=== PATIENT | female | born 1970 | race Caucasian/White ===

== ENCOUNTER 2017-09-29 13:14 | Emergency (ER) | payer BC ==
[2017-09-29] MEDS ORDERED: Sodium Chloride 0.9% 10 ML Syringe FLUSH PRN (13:35)
[2017-09-29] MEDS ORDERED: Aspirin 81 MG Tab.Chew PO ONE (13:35)
[2017-09-29] MEDS ORDERED: HYDROmorphone 0.5 MG/0.5 ML Syringe IVPUSH ONE (13:38)
[2017-09-29] MEDS ORDERED: Sodium Chloride 0.9% 1,000 ML IV SCH (13:45)
--- NOTE | 2017-09-29 16:16 | EDM.PDOC ---
ED HPI GENERAL MEDICAL PROBLEM - General Chief Complaint: Chest Pain Stated Complaint: SOB/CHEST PAIN Time Seen by Provider: 09/29/17 13:27 Source of Information: Reports: Patient History Limitations: Reports: No Limitations - History of Present Illness INITIAL COMMENTS - FREE TEXT/NARRATIVE: The patient presents with chest pain and shortness of breath. This started a few days ago. She also has some nausea. Her biggest concern was she has muscle cramps all over her body. She denies fever, chills, or cough. She has no nausea or vomiting. She was seen at the walk in clinic and given a muscle relaxer that has not been helping. She has a history of diabetes, HTN and high cholesterol. She does smoke. Onset: Gradual Duration: Day(s): (3) Location: Reports: Chest Quality: Reports: Sharp Severity: Moderate Improves with: Reports: None Worsens with: Reports: None Associated Symptoms: Reports: Chest Pain, Shortness of Breath. 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: Reports: Endocrine/Metabolic History: Reports: Diabetes, Type II - Past Surgical History HEENT Surgical History: Reports: Naso-Sinus Surgery GI Surgical History: Reports: Cholecystectomy Female Surgical History: Reports: Section, Oophorectomy Dermatological Surgical History: Reports: Skin Graft Social & Family History - Tobacco Use Smoking Status *Q: Current Every Day Smoker Years of Tobacco use: 28 Packs/Tins Daily: 1 - Caffeine Use Caffeine Use: Reports: Coffee, Soda - Recreational Drug Use Recreational Drug Use: No ED ROS GENERAL - Review of Systems Review Of Systems: See Below Constitutional: Reports: No Symptoms HEENT: Reports: No Symptoms Respiratory: Reports: Shortness of Breath Cardiovascular: Reports: Chest Pain Endocrine: Reports: No Symptoms GI/Abdominal: Reports: No Symptoms ED EXAM, GENERAL - Physical Exam Exam: See Below Exam Limited By: No Limitations General Appearance: Alert, No Apparent Distress Ears: Normal External Exam Nose: Normal Inspection Throat/Mouth: Normal Inspection Head: Atraumatic, Normocephalic Neck: Normal Inspection Respiratory/Chest: No Respiratory Distress, Lungs Clear, Normal Breath Sounds Cardiovascular: Regular Rate, Rhythm, No Edema, No Murmur GI/Abdominal: Soft, Non-Tender, No Organomegaly, No Mass Back Exam: Normal Inspection Extremities: Normal Inspection Neurological: Alert, Oriented, No Motor/Sensory Deficits EKG INTERPRETATION EKG Date: 09/29/17 Time: 13:27 Rhythm: Other (sinus tachycardia) Rate (Beats/Min): 112 [place]: Normal P-Wave: Present QRS: Normal ST-T: Normal QT: Normal Course - Vital Signs Last Recorded V/S: Last Vital Signs Temp 98.4 F 09/29/17 13:36 Pulse 105 H 09/29/17 13:36 Resp 12 09/29/17 13:36 BP 104/76 09/29/17 13:36 Pulse Ox 98 09/29/17 13:36 - Orders/Labs/Meds Orders: Active Orders 24 hr Category Date Time Status Cardiac Monitoring [RC] . DIRECTED Care 09/29/17 13:35 Active EKG Documentation Completion [RC] STAT Care 09/29/17 13:37 Active Peripheral IV Care [RC] . DIRECTED Care 09/29/17 13:37 Active Chest 1V Frontal [CR] Stat Exams 09/29/17 13:37 Taken Sodium Chloride 0.9% [Normal Saline] 1,000 ml Med 09/29/17 13:45 Active IV ASDIRECTED Sodium Chloride 0.9% [Saline Flush] Med 09/29/17 13:35 Active 10 ml FLUSH ASDIRECTED PRN Peripheral IV Insertion Adult [OM.PC] Stat Oth 09/29/17 13:35 Ordered Medication Orders Sodium Chloride (Normal Saline) 1,000 mls @ 125 mls/hr IV ASDIRECTED AYSE Last Admin: 09/29/17 13:50 Dose: 125 mls/hr Sodium Chloride (Saline Flush) 10 ml FLUSH ASDIRECTED PRN PRN Reason: Keep Vein Open Last Admin: 09/29/17 13:49 Dose: 10 ml Labs: Laboratory Tests 09/29/17 09/29/17 09/29/17 Range/Units 13:35 13:35 13:35 WBC 9.24 (3.98-10.04) K/mm3 RBC 4.91 (3.98-5.22) M/mm3 Hgb 14.7 (11.2-15.7) gm/L Hct 43.7 (34.1-44.9) % MCV 89.0 (79.4-94.8) fl MCH 29.9 (25.6-32.2) pg MCHC 33.6 (32.2-35.5) g/dl RDW Std Deviation 50.4 H (36.4-46.3) fL Plt Count 72 L (182-369) K/mm3 MPV TNP Neut % (Auto) 64.8 (34.0-71.1) % Lymph % (Auto) 27.5 (19.3-51.7) % [place] % (Auto) 6.3 (4.7-12.5) % Eos % (Auto) 1.1 (0.7-5.8) Baso % (Auto) 0.2 (0.1-1.2) % Neut # (Auto) 5.99 (1.56-6.13) K/mm3 Lymph # (Auto) 2.54 (1.18-3.74) K/mm3 [place] # (Auto) 0.58 H (0.24-0.36) K/mm3 Eos # (Auto) 0.10 (0.04-0.36) K/mm3 Baso # (Auto) 0.02 (0.01-0.08) K/mm3 Manual Slide Review Abnormal smear D-Dimer, Quantitative 0.46 (0.19-0.59) mg/L Sodium 138 (136-145) mEq/L Potassium 3.8 (3.5-5.1) mEq/L Chloride 102 (98-107) mEq/L Carbon Dioxide 25 (21-32) mEq/L Anion Gap 14.8 (5-15) BUN 27 H (7-18) mg/dL Creatinine 1.5 H (0.55-1.02) mg/dL Est Cr Clr Drug Dosing 37.06 mL/min Estimated GFR (MDRD) 37 (>60) mL/min BUN/Creatinine Ratio 18.0 (14-18) Glucose 130 H (74-106) mg/dL Calcium 8.7 (8.5-10.1) mg/dL Magnesium 1.7 L (1.8-2.4) mg/dl Total Bilirubin 0.5 (0.2-1.0) mg/dL AST 28 (15-37) U/L ALT 46 (14-59) U/L Alkaline Phosphatase 73 (46-116) U/L Troponin I < 0.017 (0.00-0.056) ng/mL Total Protein 7.6 (6.4-8.2) g/dl Albumin 3.4 (3.4-5.0) g/dl Globulin 4.2 gm/dL Albumin/Globulin Ratio 0.8 L (1-2) HCG, Qual (NEGATIVE) 09/29/17 Range/Units 13:35 WBC (3.98-10.04) K/mm3 RBC (3.98-5.22) M/mm3 Hgb (11.2-15.7) gm/L Hct (34.1-44.9) % MCV (79.4-94.8) fl MCH (25.6-32.2) pg MCHC (32.2-35.5) g/dl RDW Std Deviation (36.4-46.3) fL Plt Count (182-369) K/mm3 MPV Neut % (Auto) (34.0-71.1) % Lymph % (Auto) (19.3-51.7) % [place] % (Auto) (4.7-12.5) % Eos % (Auto) (0.7-5.8) Baso % (Auto) (0.1-1.2) % Neut # (Auto) (1.56-6.13) K/mm3 Lymph # (Auto) (1.18-3.74) K/mm3 [place] # (Auto) (0.24-0.36) K/mm3 Eos # (Auto) (0.04-0.36) K/mm3 Baso # (Auto) (0.01-0.08) K/mm3 Manual Slide Review D-Dimer, Quantitative (0.19-0.59) mg/L Sodium (136-145) mEq/L Potassium (3.5-5.1) mEq/L Chloride (98-107) mEq/L Carbon Dioxide (21-32) mEq/L Anion Gap (5-15) BUN (7-18) mg/dL Creatinine (0.55-1.02) mg/dL Est Cr Clr Drug Dosing mL/min Estimated GFR (MDRD) (>60) mL/min BUN/Creatinine Ratio (14-18) Glucose (74-106) mg/dL Calcium (8.5-10.1) mg/dL Magnesium (1.8-2.4) mg/dl Total Bilirubin (0.2-1.0) mg/dL AST (15-37) U/L ALT (14-59) U/L Alkaline Phosphatase (46-116) U/L Troponin I (0.00-0.056) ng/mL Total Protein (6.4-8.2) g/dl Albumin (3.4-5.0) g/dl Globulin gm/dL Albumin/Globulin Ratio (1-2) HCG, Qual Negative (NEGATIVE) Meds: Medications Generic Name Dose Route Start Last Admin Trade Name Freq PRN Reason Stop Dose Admin Sodium Chloride 1,000 mls @ 125 mls/hr 09/29/17 13:45 09/29/17 13:50 Normal Saline IV 125 mls/hr ASDIRECTED AYSE Administration Sodium Chloride 10 ml 09/29/17 13:35 09/29/17 13:49 Saline Flush FLUSH 10 ml ASDIRECTED PRN Administration Keep Vein Open Discontinued Medications Generic Name Dose Route Start Last Admin Trade Name Johnq PRN Reason Stop Dose Admin Aspirin 324 mg 09/29/17 13:35 09/29/17 13:47 Aspirin PO 09/29/17 13:36 324 mg ONETIME ONE Administration Hydromorphone HCl 0.5 mg 09/29/17 13:38 09/29/17 13:48 Dilaudid IVPUSH 09/29/17 13:39 0.5 mg ONETIME ONE Administration - Re-Assessments/Exams Free Text/Narrative Re-Assessment/Exam: 09/29/17 16:19 I ordered an IV NS, labs, EKG, CXR and dilaudid for pain. Her EKG shows sinus tachycardia with no acute changes. Her CXR looks good. Her WBC and Hgb were normal. Her platelets were low at 72. Her D-dimer was negative. Her creatinine was elevated at 1.5 with a low GFR of 37.06. Her glucose was 130. Her troponin was negative and her HCG was negative. She feels better. I will discharge her with something for pain and off work for a couple days. I will have her follow up with Dr Nascimento for the renal insuficency and thrombocytopnia. Departure - Departure Time of Disposition: 16:25 Disposition: Home, Self-Care 01 Condition: Good Clinical Impression: Atypical chest pain, Renal insufficiency, Thrombocytopenia Prescriptions: Hydrocodone/Acetaminophen [Hydrocodon-Acetaminophen 5-325] 1 - 2 each PO Q6HR PRN #20 tablet PRN Reason: Pain Referrals: PCP,None [Primary Care Provider] - Thais Nascimento MD [Physician] - 1 Week Additional Instructions: Take your medication as prescribed. Rest for a couple days. Follow up with Dr Nascimento. Drink plenty of fluids. Please return if you are worse. - My Orders Last 24 Hours: My Active Orders 09/29/17 13:35 Cardiac Monitoring [RC] . DIRECTED Sodium Chloride 0.9% [Saline Flush] 10 ml FLUSH ASDIRECTED PRN Peripheral IV Insertion Adult [OM.PC] Stat 09/29/17 13:37 EKG Documentation Completion [RC] STAT Peripheral IV Care [RC] . DIRECTED Chest 1V Frontal [CR] Stat 09/29/17 13:45 Sodium Chloride 0.9% [Normal Saline] 1,000 ml IV ASDIRECTED - Assessment/Plan Last 24 Hours: My Active Orders 09/29/17 13:35 Cardiac Monitoring [RC] . DIRECTED Sodium Chloride 0.9% [Saline Flush] 10 ml FLUSH ASDIRECTED PRN Peripheral IV Insertion Adult [OM.PC] Stat 09/29/17 13:37 EKG Documentation Completion [RC] STAT Peripheral IV Care [RC] . DIRECTED Chest 1V Frontal [CR] Stat 09/29/17 13:45 Sodium Chloride 0.9% [Normal Saline] 1,000 ml IV ASDIRECTED
--- NOTE | 2017-10-04 10:17 | CR ---
Chest: Portable view of the chest was obtained. Comparison: No prior chest x-ray. Heart size and mediastinum are normal. Lungs are clear. Bony structures are grossly intact. Impression: 1. Nothing acute is identified on portable chest x-ray. Diagnostic code #1
== END 2017-09-29 16:46 | disposition home or self-care (01) ==
LOC: JD.ED 13:14
DX: R07.89 Other chest pain (principal); N28.9 Disorder of kidney and ureter, unspecified; D69.6 Thrombocytopenia, unspecified; E11.9 Type 2 diabetes mellitus without complications; I10 Essential (primary) hypertension; F17.210 Nicotine dependence, cigarettes, uncomplicated
CPT/HCPCS: 36415; 71010; 80053; 83735; 84484; 84703; 85025; 85379; 93005; 96361; 96374; 99285; A9270; J1170; J7040; J7050; 93010; 99284

== ENCOUNTER 2019-02-06 22:05 | Emergency (ER) | payer BC, OTHER ==
[2019-02-06] MEDS ORDERED: Albuterol/Ipratropium 3.0-0.5 MG/3 ML Neb Soln NEB ONE (22:29)
--- NOTE | 2019-02-07 00:17 | EDM.PDOC ---
ED HPI GENERAL MEDICAL PROBLEM - General Chief Complaint: Respiratory Problem Stated Complaint: COUGH VOMITING Time Seen by Provider: 02/06/19 22:16 Source of Information: Reports: Patient, Family History Limitations: Reports: No Limitations - History of Present Illness INITIAL COMMENTS - FREE TEXT/NARRATIVE: The patient presents with a fever, chills, cough, congestion and runny nose. This all started on Wednesday. She says she coughs so much that she vomits. She has a history of asthma. 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 She has no abdominal pain, nausea or vomiting. Her ears do not hurt. Her throat is not sore. Onset: Gradual Duration: Day(s): Severity: Moderate Improves with: Reports: None Worsens with: Reports: None Associated Symptoms: Reports: Cough, Fever/Chills, Nausea/Vomiting, Shortness of Breath. Denies: Chest Pain, Headaches - Related Data Allergies Allergy/AdvReac Type Severity Reaction Status Date / Time adhesive tape Allergy Hives Verified 02/06/19 22:17 Home Meds: Home Meds Albuterol/Ipratropium [DuoNeb 3.0-0.5 MG/3 ML] 3 ml NEB TID PRN 02/06/19 [ History] Lisinopril 20 mg PO DAILY 02/06/19 [History] Omeprazole 30 mg PO DAILY 02/06/19 [History] atorvaSTATin [Lipitor] 10 mg PO BEDTIME 02/06/19 [History] hydroCHLOROthiazide [Hydrochlorothiazide] 12.5 mg PO DAILY 02/06/19 [History] Past Medical History HEENT History: Reports: Impaired Vision Other HEENT History: wears glasses Cardiovascular History: Reports: High Cholesterol, Hypertension Gastrointestinal History: Reports: GERD [employer]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: Endocrine/Metabolic History: Reports: Diabetes, Type II - Past Surgical History HEENT Surgical History: Reports: Naso-Sinus Surgery GI Surgical History: Reports: Cholecystectomy Female Surgical History: Reports: Section, Oophorectomy Dermatological Surgical History: Reports: Skin Graft Social & Family History - Tobacco Use Smoking Status *Q: Current Every Day Smoker Years of Tobacco use: 30 Packs/Tins Daily: 0.3 Used Tobacco, but Quit: No - Caffeine Use Caffeine Use: Reports: None - Recreational Drug Use Recreational Drug Use: No ED ROS GENERAL - Review of Systems Review Of Systems: See Below Constitutional: Reports: Fever, Chills HEENT: Reports: No Symptoms Respiratory: Reports: Shortness of Breath, Cough Cardiovascular: Reports: No Symptoms Endocrine: Reports: No Symptoms GI/Abdominal: Reports: Vomiting. Denies: Abdominal Pain : Reports: No Symptoms Musculoskeletal: Reports: No Symptoms ED EXAM, GENERAL - Physical Exam Exam: See Below Exam Limited By: No Limitations General Appearance: Alert, No Apparent Distress Ears: Normal External Exam Nose: Normal Inspection Throat/Mouth: Normal Inspection Head: Atraumatic, Normocephalic Neck: Normal Inspection, Supple, Non-Tender Respiratory/Chest: No Respiratory Distress, Decreased Breath Sounds Cardiovascular: Regular Rate, Rhythm, No Edema, No Murmur GI/Abdominal: Soft, Non-Tender, No Organomegaly, No Mass Back Exam: Normal Inspection Extremities: Normal Inspection Neurological: Alert, Oriented, No Motor/Sensory Deficits Course - Vital Signs Last Recorded V/S: Last Vital Signs Temp 98.1 F 02/06/19 22:14 Pulse 108 H 02/06/19 22:14 Resp 19 02/06/19 22:14 BP 180/100 H 02/06/19 22:14 Pulse Ox 95 02/06/19 22:29 - Orders/Labs/Meds Orders: Active Orders 24 hr Category Date Time Status RT Aerosol Therapy [RC] ASDIRECTED Care 02/06/19 22:29 Active CXR [Chest 2V] [CR] Stat Exams 02/06/19 22:29 Ordered Labs: Laboratory Tests 02/06/19 02/06/19 Range/Units 22:40 22:40 WBC 8.05 (3.98-10.04) K/mm3 RBC 4.39 (3.98-5.22) M/mm3 Hgb 13.4 (11.2-15.7) gm/L Hct 39.9 (34.1-44.9) % MCV 90.9 (79.4-94.8) fl MCH 30.5 (25.6-32.2) pg MCHC 33.6 (32.2-35.5) g/dl RDW Std Deviation 44.2 (36.4-46.3) fL Plt Count 78 L (182-369) K/mm3 Neut % (Auto) 54.3 (34.0-71.1) % Lymph % (Auto) 30.4 (19.3-51.7) % [place] % (Auto) 8.0 (4.7-12.5) % Eos % (Auto) 6.5 H (0.7-5.8) Baso % (Auto) 0.7 (0.1-1.2) % Neut # (Auto) 4.37 (1.56-6.13) K/mm3 Lymph # (Auto) 2.45 (1.18-3.74) K/mm3 [place] # (Auto) 0.64 H (0.24-0.36) K/mm3 Eos # (Auto) 0.52 H (0.04-0.36) K/mm3 Baso # (Auto) 0.06 (0.01-0.08) K/mm3 Manual Slide Review Abnormal smear Sodium 142 (136-145) mEq/L Potassium 3.1 L (3.5-5.1) mEq/L Chloride 106 (98-107) mEq/L Carbon Dioxide 25 (21-32) mEq/L Anion Gap 14.1 (5-15) BUN 14 (7-18) mg/dL Creatinine 0.8 (0.55-1.02) mg/dL Est Cr Clr Drug Dosing 71.91 mL/min Estimated GFR (MDRD) > 60 (>60) mL/min BUN/Creatinine Ratio 17.5 (14-18) Glucose 106 (74-106) mg/dL Calcium 9.1 (8.5-10.1) mg/dL Total Bilirubin 0.3 (0.2-1.0) mg/dL AST 22 (15-37) U/L ALT 30 (14-59) U/L Alkaline Phosphatase 83 (46-116) U/L Total Protein 7.7 (6.4-8.2) g/dl Albumin 3.5 (3.4-5.0) g/dl Globulin 4.2 gm/dL Albumin/Globulin Ratio 0.8 L (1-2) Meds: Medications Discontinued Medications Generic Name Dose Route Start Last Admin Trade Name Freq PRN Reason Stop Dose Admin Albuterol/Ipratropium 3 ml 02/06/19 22:29 02/06/19 22:57 Duoneb 3.0-0.5 Mg/3 Ml NEB 02/06/19 22:30 3 ml ONETIME ONE Administration - Re-Assessments/Exams Free Text/Narrative Re-Assessment/Exam: 02/07/19 00:15 I ordered labs, CXR and a duoneb. Her CXR does not show any infiltrate. Her CBC looks good. Her K is a little low at 3.1. She feels a little better. Her influenza was negative. I will get her on a z-latricia and some phenergan with codeine for the cough. Departure - Departure Time of Disposition: 00:25 Disposition: Home, Self-Care 01 Condition: Good Clinical Impression: Bronchitis - Discharge Information *PRESCRIPTION DRUG MONITORING PROGRAM REVIEWED*: Not Applicable *COPY OF PRESCRIPTION DRUG MONITORING REPORT IN PATIENT OMAR: Not Applicable Referrals: Carlotta Rubio PA-C [Primary Care Provider] - 1 Week Forms: ED Department Discharge, ED Return to Work/School Form Additional Instructions: Take the zithromax 2 pills on day 1 and 1 pill on day 2 through 5. Take the phenergan with codeine 5 to 10mls every 6 hours as needed for coughing. Take tylenol or motrin for any fever or pain. Please return if you are worse. - My Orders Last 24 Hours: My Active Orders 02/06/19 22:29 RT Aerosol Therapy [RC] ASDIRECTED CXR [Chest 2V] [CR] Stat - Assessment/Plan Last 24 Hours: My Active Orders 02/06/19 22:29 RT Aerosol Therapy [RC] ASDIRECTED CXR [Chest 2V] [CR] Stat
--- NOTE | 2019-02-07 07:02 | CR ---
Chest: Two views of the chest were obtained. Comparison: Prior chest x-ray of 09/29/17. Heart size is normal. Upper mediastinum is normal. Lungs are clear with no acute parenchymal change. Bony structures are unremarkable. Surgical clips are seen within the upper abdomen. Impression: 1. Nothing acute is seen on two-view chest x-ray. Diagnostic code #2
== END 2019-02-07 00:26 | disposition home or self-care (01) ==
LOC: JD.ED 22:05
DX: J40 Bronchitis, not specified as acute or chronic (principal); E78.00 Pure hypercholesterolemia, unspecified; I10 Essential (primary) hypertension; K21.9 Gastro-esophageal reflux disease without esophagitis; E11.9 Type 2 diabetes mellitus without complications; F17.210 Nicotine dependence, cigarettes, uncomplicated; Z91.048 Other nonmedicinal substance allergy status; Z79.899 Other long term (current) drug therapy
CPT/HCPCS: 36415; 71046; 71046-26; 80053; 85025; 87804; 94640; 99283; 99284-25; J7620-GY

== ENCOUNTER 2019-02-12 16:23 | Inpatient (IN) | payer OTHER ==
[2019-02-12] MEDS ORDERED: methylPREDNISolone Sodium Succinate 125 MG/2 ML SDV IVPUSH ONE (18:06)
--- NOTE | 2019-02-12 19:52 | CR ---
Chest: Portable view of the chest was obtained. Comparison: Prior chest x-ray of 02/06/19. Heart size and mediastinum are within normal limits for portable technique. Lung markings are mildly increased which appears stable from prior chest x-ray. No acute parenchymal change is seen. Bony structures are unremarkable for the patient's age. Impression: 1. Stable findings. Nothing acute is seen. Diagnostic code #2
[2019-02-12] MEDS ORDERED: Albuterol 0.083% 2.5 MG/3 ML Neb Soln NEB ONE ×2 (20:14→20:44)
--- NOTE | 2019-02-12 21:57 | EDM.PDOC ---
ED HPI GENERAL MEDICAL PROBLEM - General Chief Complaint: Respiratory Problem Stated Complaint: SOB/BRONCHITIS NOT BETTER Time Seen by Provider: 02/12/19 17:02 Source of Information: Reports: Patient, Family History Limitations: Reports: No Limitations - History of Present Illness INITIAL COMMENTS - FREE TEXT/NARRATIVE: 48 yo F h/o HTN, HLD, Prediabetes comes in for SOB and cough, which started 3 weeks ago when she was cleaning out a camper that was rat-infested, and has since gotten worse. She also had Influenza A back in January and was on Tamiflu and did feel she recovered. She was seen here in the ED on 02/06/19 and was diagnosed with Bronchitis and given Z-Brandon and Promethazine w/ Codeine cough syrup. Pt states she finished the antibiotic and has since gotten worse. She is now 84% on RA and is 94% on 3L O2; usually not on O2 at home. She has no known previous h/o of COPD, CHF, Asthma, or SEBAS. She does have seasonal allergies and uses Claritin and Benadryl PRN. She currently c/o F/C, non-productive cough, occasional vomiting with cough, difficulty swallowing food as will cause a "coughing fit", sore throat w/ difficulty eating and drinking, and orthopnea. She did try ProAir inhaler at home with no relief. She has a h/o smoking 1ppd x 10 years, but has been able to cut back to 1ppw for 3 weeks and hasn't smoked in 2 weeks. She is trying to quit and is currently on Chantix. She is also currently on her menses, has lasted about 1.5 weeks. She had the Depo-Provera shot and has since had irregular menses. PCP is Carlotta Rubio PA-C. She is a Full Code. Chest Pain Score (Numeric/FACES): 4 - Related Data Allergies Allergy/AdvReac Type Severity Reaction Status Date / Time adhesive tape Allergy Hives Verified 02/06/19 22:17 aspirin Allergy Cannot Verified 02/12/19 16:40 Remember Home Meds: Home Meds Albuterol/Ipratropium [DuoNeb 3.0-0.5 MG/3 ML] 3 ml NEB TID PRN 02/06/19 [ History] Lisinopril 20 mg PO DAILY 02/06/19 [History] Omeprazole 30 mg PO DAILY 02/06/19 [History] atorvaSTATin [Lipitor] 10 mg PO BEDTIME 02/06/19 [History] hydroCHLOROthiazide [Hydrochlorothiazide] 12.5 mg PO DAILY 02/06/19 [History] Albuterol Sulfate [Proair Hfa] 2 inh INH Q4HR PRN 02/12/19 [History] Past Medical History HEENT History: Reports: Impaired Vision Other HEENT History: wears glasses Cardiovascular History: Reports: High Cholesterol, Hypertension Gastrointestinal History: Reports: [employer] History: Reports: Endocrine/Metabolic History: Reports: Diabetes, Type II - Past Surgical History HEENT Surgical History: Reports: Naso-Sinus Surgery GI Surgical History: Reports: Cholecystectomy Female Surgical History: Reports: Section, Oophorectomy Dermatological Surgical History: Reports: Skin Graft Social & Family History - Tobacco Use Smoking Status *Q: Never Smoker - Caffeine Use Caffeine Use: Reports: None - Recreational Drug Use Recreational Drug Use: No ED ROS GENERAL - Review of Systems Review Of Systems: See Below Constitutional: Reports: Fever, Chills HEENT: Reports: Throat Pain (hurts to eat and drink) Respiratory: Reports: Shortness of Breath, Wheezing, Cough. Denies: Pleuritic Chest Pain, Sputum, Hemoptysis Cardiovascular: Reports: Blood Pressure Problem, Dyspnea on Exertion. Denies: Chest Pain, Edema, Lightheadedness Endocrine: Reports: No Symptoms GI/Abdominal: Reports: Vomiting (with "coughing fits"). Denies: Abdominal Pain , Diarrhea, Nausea : Reports: No Symptoms Musculoskeletal: Reports: No Symptoms Skin: Reports: No Symptoms Neurological: Reports: No Symptoms. Denies: Headache, Numbness, Tingling, Weakness Psychiatric: Reports: No Symptoms Hematologic/Lymphatic: Reports: No Symptoms Immunologic: Reports: Seasonal Allergy (will get hives and SOB) ED EXAM, GENERAL - Physical Exam Exam: See Below Exam Limited By: No Limitations General Appearance: Alert, Mild Distress Eye Exam: Bilateral Eye: EOMI, Normal Inspection, PERRL Ears: Normal External Exam, Hearing Grossly Normal Nose: Normal Inspection, Normal Mucosa, No Blood Throat/Mouth: Normal Inspection, Normal Lips, Normal Teeth, Normal Gums, Normal Voice, No Airway Compromise. No: Normal Oropharynx (some erythema present) Neck: Normal Inspection, Supple, Non-Tender, Full Range of Motion Respiratory/Chest: No Accessory Muscle Use, Chest Non-Tender, Respiratory Distress (pt coughing and having difficulty breathing throughout exam), Wheezing Cardiovascular: Normal Peripheral Pulses, No Edema, No Gallop, No JVD, No Murmur , No Rub, Tachycardia Peripheral Pulses: 2+: Posterior Tibial (L), Posterior Tibial (R), Dorsalis Pedis (L), Dorsalis Pedis (R) GI/Abdominal: Normal Bowel Sounds, Soft, Non-Tender, No Organomegaly, No Distention, No Abnormal Bruit, No Mass Back Exam: Normal Inspection Extremities: Normal Inspection, Normal Range of Motion, Non-Tender, Normal Capillary Refill, No Pedal Edema Psychiatric: Normal Affect, Normal Mood Skin Exam: Warm, Dry, Intact, Normal Color, No Rash Course - Vital Signs Last Recorded V/S: Last Vital Signs Temp 98.6 F 02/12/19 16:35 Pulse 121 H 02/12/19 16:35 Resp 20 02/12/19 16:35 BP 157/105 H 02/12/19 16:35 Pulse Ox 93 L 02/12/19 20:38 - Orders/Labs/Meds Orders: Active Orders 24 hr Category Date Time Status RT Aerosol Therapy [RC] ASDIRECTED Care 02/12/19 20:14 Active Labs: Laboratory Tests 02/12/19 02/12/19 02/12/19 Range/Units 17:15 17:55 17:55 WBC 9.96 (3.98-10.04) K/mm3 RBC 4.77 (3.98-5.22) M/mm3 Hgb 14.3 (11.2-15.7) gm/L Hct 42.7 (34.1-44.9) % MCV 89.5 (79.4-94.8) fl MCH 30.0 (25.6-32.2) pg MCHC 33.5 (32.2-35.5) g/dl RDW Std Deviation 43.5 (36.4-46.3) fL Plt Count 104 L (182-369) K/mm3 MPV TNP Neut % (Auto) 62.0 (34.0-71.1) % Lymph % (Auto) 22.1 (19.3-51.7) % Ransom % (Auto) 10.1 (4.7-12.5) % Eos % (Auto) 4.7 (0.7-5.8) Baso % (Auto) 0.9 (0.1-1.2) % Neut # (Auto) 6.17 H (1.56-6.13) K/mm3 Lymph # (Auto) 2.20 (1.18-3.74) K/mm3 Ransom # (Auto) 1.01 H (0.24-0.36) K/mm3 Eos # (Auto) 0.47 H (0.04-0.36) K/mm3 Baso # (Auto) 0.09 H (0.01-0.08) K/mm3 Manual Slide Review Abnormal smear D-Dimer, Quantitative 0.51 H (0.19-0.50) mg/L Puncture Site ABG pH (7.35-7.45) ABG pCO2 (35.0-45.0) mmHg ABG pO2 (80.0-100.0) mmHg ABG HCO3 (22.0-26.0) meq/L ABG O2 Saturation (96.0-97.0) % ABG Base Excess (-2-2.0) Lei Test A-a Gradient mmHg O2 Delivery Device Oxygen Flow Rate FiO2 (21.00-100.00) % Sodium 141 (136-145) mEq/L Potassium 3.1 L (3.5-5.1) mEq/L Chloride 104 (98-107) mEq/L Carbon Dioxide 26 (21-32) mEq/L Anion Gap 14.1 (5-15) BUN 9 (7-18) mg/dL Creatinine 0.8 (0.55-1.02) mg/dL Est Cr Clr Drug Dosing 68.76 mL/min Estimated GFR (MDRD) > 60 (>60) mL/min BUN/Creatinine Ratio 11.3 L (14-18) Glucose 119 H (74-106) mg/dL Calcium 9.6 (8.5-10.1) mg/dL Total Bilirubin 0.4 (0.2-1.0) mg/dL AST 22 (15-37) U/L ALT 26 (14-59) U/L Alkaline Phosphatase 101 (46-116) U/L C-Reactive Protein 7.0 H* (<1.0) mg/dL NT-Pro-B Natriuret Pep (0-125) pg/mL Total Protein 8.3 H (6.4-8.2) g/dl Albumin 3.4 (3.4-5.0) g/dl Globulin 4.9 gm/dL Albumin/Globulin Ratio 0.7 L (1-2) Mycoplasma pneumon IgM (NEGATIVE) 02/12/19 02/12/19 02/12/19 Range/Units 17:55 18:20 20:25 WBC (3.98-10.04) K/mm3 RBC (3.98-5.22) M/mm3 Hgb (11.2-15.7) gm/L Hct (34.1-44.9) % MCV (79.4-94.8) fl MCH (25.6-32.2) pg MCHC (32.2-35.5) g/dl RDW Std Deviation (36.4-46.3) fL Plt Count (182-369) K/mm3 MPV Neut % (Auto) (34.0-71.1) % Lymph % (Auto) (19.3-51.7) % Ransom % (Auto) (4.7-12.5) % Eos % (Auto) (0.7-5.8) Baso % (Auto) (0.1-1.2) % Neut # (Auto) (1.56-6.13) K/mm3 Lymph # (Auto) (1.18-3.74) K/mm3 Ransom # (Auto) (0.24-0.36) K/mm3 Eos # (Auto) (0.04-0.36) K/mm3 Baso # (Auto) (0.01-0.08) K/mm3 Manual Slide Review D-Dimer, Quantitative (0.19-0.50) mg/L Puncture Site Rt radial ABG pH 7.43 (7.35-7.45) ABG pCO2 38.2 (35.0-45.0) mmHg ABG pO2 67.0 L (80.0-100.0) mmHg ABG HCO3 24.7 (22.0-26.0) meq/L ABG O2 Saturation 94.4 L (96.0-97.0) % ABG Base Excess 1.0 (-2-2.0) Lei Test Positive A-a Gradient 90 mmHg O2 Delivery Device Nasal cannula Oxygen Flow Rate 3.0 FiO2 32.00 (21.00-100.00) % Sodium (136-145) mEq/L Potassium (3.5-5.1) mEq/L Chloride (98-107) mEq/L Carbon Dioxide (21-32) mEq/L Anion Gap (5-15) BUN (7-18) mg/dL Creatinine (0.55-1.02) mg/dL Est Cr Clr Drug Dosing mL/min Estimated GFR (MDRD) (>60) mL/min BUN/Creatinine Ratio (14-18) Glucose (74-106) mg/dL Calcium (8.5-10.1) mg/dL Total Bilirubin (0.2-1.0) mg/dL AST (15-37) U/L ALT (14-59) U/L Alkaline Phosphatase (46-116) U/L C-Reactive Protein (<1.0) mg/dL NT-Pro-B Natriuret Pep 237 H (0-125) pg/mL Total Protein (6.4-8.2) g/dl Albumin (3.4-5.0) g/dl Globulin gm/dL Albumin/Globulin Ratio (1-2) Mycoplasma pneumon IgM Negative (NEGATIVE) Meds: Medications Discontinued Medications Generic Name Dose Route Start Last Admin Trade Name Freq PRN Reason Stop Dose Admin Albuterol 2.5 mg 02/12/19 20:14 02/12/19 20:37 [facility] 02/12/19 20:15 2.5 mg ONETIME ONE Administration Albuterol 2.5 mg 02/12/19 20:44 02/12/19 21:06 [facility] 02/12/19 20:45 Not Given ONETIME ONE Influenza Virus Vaccine 1 each 02/12/19 21:39 Pharmacy To Dose - Influenza Vaccine IM 02/12/19 21:40 ONETIME ONE Influenza Virus Vaccine 60 mcg 02/12/19 21:45 Fluzone Quad [id number] Syringe IM 02/12/19 21:46 .ONCE ONE Methylprednisolone Sodium Succinate 125 mg 02/12/19 18:06 02/12/19 18:51 Solu-Medrol IVPUSH 02/12/19 18:07 125 mg ONETIME ONE Administration - Re-Assessments/Exams Free Text/Narrative Re-Assessment/Exam: 02/12/19 17:00 CXR ordered 02/12/19 17:55 Ordered CBC, CMP, CRP, Mycoplasma 02/12/19 18:00 Duoneb and methylprednisone 125mg ordered 02/12/19 18:20 Ordered ABG, Influenza, BNP 02/12/19 18:40 CBC WNL CMP shows K 3.1, Glu 119, Protein 8.3 CRP 7 Mycoplasma negative ABG shows low pO2 67 and O2 Sat 92.4 Influenza negative BNP elevated at 237 02/12/19 19:[address] Black and myself, nothing acute appreciated 02/12/19 19:49 Dr. Mueller read as nothing acute appreciated. 02/12/19 20:14 Still no improvement with patient breathing. Asked her to remove her NC- she is still 84% on RA. Albuterol neb 2.5mg ordered 02/12/19 20:44 Pt still feeling SOB. Albuterol neb 2.5mg ordered. 02/12/19 20:[address] Booker. He would like a Troponin and D-dimer to be done. Will accept pt to Observation on Telemetry. Departure - Departure Time of Disposition: 21:57 Disposition: Refer to Observation Condition: Fair Clinical Impression: Hypoxia, Cough - Discharge Information *PRESCRIPTION DRUG MONITORING PROGRAM REVIEWED*: Not Applicable *COPY OF PRESCRIPTION DRUG MONITORING REPORT IN PATIENT OMAR: Not Applicable - My Orders Last 24 Hours: My Active Orders 02/12/19 20:14 RT Aerosol Therapy [RC] ASDIRECTED - Assessment/Plan Last 24 Hours: My Active Orders 02/12/19 20:14 RT Aerosol Therapy [RC] ASDIRECTED
[2019-02-12] MEDS ORDERED: Morphine 2 MG/ML Syringe IVPUSH ONE (22:22)
[2019-02-12] MEDS ORDERED: hydrALAZINE 20 MG/ML SDV IVPUSH PRN (22:55)
[2019-02-12] MEDS ORDERED: Morphine 2 MG/ML Syringe IVPUSH PRN (22:55)
[2019-02-12] MEDS ORDERED: Ondansetron 4 MG/2 ML SDV IV PRN (22:57)
[2019-02-12] MEDS ORDERED: Acetaminophen 325 MG Tab PO PRN (22:57)
[2019-02-12] MEDS ORDERED: Bisacodyl 5 MG Tab PO PRN (22:57)
[2019-02-12] MEDS ORDERED: Polyethylene Glycol 3350 Powder 17 GM Packet PO PRN (22:57)
[2019-02-12] MEDS ORDERED: Acetaminophen/HYDROcodone 325-5 MG Tab PO PRN (22:57)
[2019-02-12] MEDS ORDERED: LORazepam 2 MG/ML SDV IV PRN (22:57)
[2019-02-12] MEDS ORDERED: Docusate Sodium 100 MG Cap PO PRN (22:57)
[2019-02-12] MEDS ORDERED: 50% Dextrose in Water 50 ML Syringe IVPUSH PRN (23:01)
[2019-02-12] MEDS ORDERED: Azithromycin 250 MG in Sodium Chloride 0.9% 250 ML IV ONE (23:05)
[2019-02-12] MEDS ORDERED: guaiFENesin/Dextromethorphan 100-10 MG/5 ML Soln 5 ML Cup PO STA (23:07)
[2019-02-12] MEDS ORDERED: Potassium Chloride 20 MEQ Tab.ER PO ONE (23:15)
--- NOTE | 2019-02-12 23:19 | PCM.SN ---
- Free Text/Narrative Note: Patient seen and examined at [facility]. She c/o dyspnea despite being on 4L NC sating at 94%. She is an active smoking (1ppd for 10 years) who recently quit smoking about 2 weeks ago. She was recently treated for bronchitis in ED on was sent home with Z-latricia and Cough Syrup. She has since completed her medications but felt worse than baseline. She was found sating in the low 80s on RA in ED and now requiring supplemental O2 at least 3L in ED but 4L on MSP maintaining on O2 sat > 92%. Patient has had PFT done long time ago in [place] but was never formally diagnosed with COPD. She has a hand held albuterol for rescue inhaler and chantix for smoking cessation. Patient has diffuse ronchi on auscultation and complaints of dyspnea. No accessory muscle use. Her d-dimer is 0.51. Her ABG shows a pH of 7.43, pCO2 of 38.2, pO2 of 67, HCO3 of 24.7, O2 Sat of 94.4% on 3L NC. Patient clinically meets criteria RAD/COPD Exacerbation plus acute respiratory failure.
[2019-02-12] MEDS: Albuterol/Ipratropium 3.0-0.5 MG/3 ML Neb Soln NEB PRN (23:26)
[2019-02-12] MEDS: Metoprolol Tartrate 5 MG/5 ML SDV IVPUSH PRN (23:41)
[2019-02-13] MEDS: methylPREDNISolone Sodium Succinate 40 MG/1 ML SDV IVPUSH SCH ×5 (00:12→18:01)
[2019-02-13] MEDS: Temazepam 15 MG Cap PO PRN ×2 (00:58→22:02)
[2019-02-13] MEDS: Pantoprazole 40 MG Tab.CR PO SCH ×2 (05:56→06:56)
[2019-02-13] MEDS: guaiFENesin/Dextromethorphan 100-10 MG/5 ML Soln 5 ML Cup PO SCH ×6 (05:56→20:15)
[2019-02-13] MEDS: Potassium Chloride 20 MEQ Tab.ER PO SCH ×2 (05:57→08:03)
[2019-02-13] MEDS ORDERED: Albuterol/Ipratropium 3.0-0.5 MG/3 ML Neb Soln NEB SCH (06:00)
--- NOTE | 2019-02-13 06:26 | PCM.HP ---
H&P History of Present Illness - General Date of Service: 02/13/19 Admit Problem/Dx: Admission Diagnosis/Problem Admission Diagnosis/Problem Hypoxia Source of Information: Patient, Provider, RN, RN Notes Reviewed History Limitations: Reports: No Limitations - History of Present Illness Initial Comments - Free Text/Narative: Serenity Garcia is a 48 yo female presents with shortness of breath and cough which started 3 weeks ago when she was cleaning out Her which was rat infested has gotten worse. She had influenza A in January and was on Tamiflu but did feel that she had recovered from that. She is in the ED on 02/06/19 was diagnosed with bronchitis admitting given azithromycin and promethazine with codeine cough syrup. States that she finished the antibiotic and symptoms have since worsened. She is on room air and saturations were at 84%. 3 L O2 applied and she is up to 94%. She is not usually on O2 at home. No history of any problems including CHF, COPD, asthma, SEBAS. She has seasonal allergies and uses Claritin and Benadryl as needed. She is currently complaining of a fever and nonproductive cough, occasional vomiting with cough, difficulty swallowing food due to a coughing fit, sore throat with difficulty eating and drinking, and orthopnea. She did try prior inhaler at home with no relief. She has a history of smoking 1 pack a day for 10 years however she has cut back to one pack a week for 3 weeks and hasn't smoked in the last 2 weeks. She is trying to quit is currently on Chantix. She is currently on her menses and has lasted about 1.5 weeks. She has a double Provera shot and has since had irregular menses. Reportedly had a PFT performed several years ago in [place] at [facility]. In the ED temperature 98.6 Fahrenheit. Pulse 121. Respirations 20. Blood pressure 157/105. Pulse ox 93%. Labs are obtained: WBC normal at 9.96. Hemoglobin 14.3. Hematocrit 42.7. She's normocytic. Posterior lower 104,000. Neutrophils are good at 62%. D-dimer 0.51. Sodium is 141. Potassium 3.1. Chloride 104. Carbon dioxide 26. Anion gap is 14.1. BUN is 9. Creatinine 0.8. EGFR greater than 60. Glucose is 119. Calcium 9.6. Bilirubin 0.4. AST is 22, ALT 26, alkaline phosphatase 101. CRP is high at 7.0. Protein is high at 8.3. Albumin 3.4. ProBNP is 237. Mycoplasma pneumonia was negative. ABGs obtained in the right radial showing a pH of 7.43. PCO2 of 38.2. PO2 67.0. HCO3 is 24.7. O2 saturation 94.4. Base excess is 1.A-a gradient is 90. This is obtained on 3 L via nasal cannula. She is given duo nebs and 125 mg Solu- Medrol. Chest x-ray obtained showing stable findings with nothing acute. Troponin is negative at less than 0.017. She carries a history of HTN, HLD, GERD, "prediabetes". She is a former smoker reportedly hasn't smoked in 2 weeks and is on Chantix while trying to quit. Her PCP is Kaye Rubio PA-C. She is a full code. Chest Pain Score (Numeric/FACES): 4 - Related Data Allergies/Adverse Reactions: Allergies Allergy/AdvReac Type Severity Reaction Status Date / Time adhesive tape Allergy Hives Verified 02/13/19 03:59 aspirin Allergy Cannot Verified 02/13/19 03:59 Remember Home Medications: Home Meds Albuterol/Ipratropium [DuoNeb 3.0-0.5 MG/3 ML] 3 ml NEB TID PRN 02/06/19 [ History] Lisinopril 20 mg PO BEDTIME 02/06/19 [History] Omeprazole 20 mg PO DAILY 02/06/19 [History] atorvaSTATin [Lipitor] 10 mg PO BEDTIME 02/06/19 [History] hydroCHLOROthiazide [Hydrochlorothiazide] 25 mg PO DAILY 02/06/19 [History] Albuterol Sulfate [Proair Hfa] 2 inh INH Q4HR PRN 02/12/19 [History] Varenicline Tartrate [Chantix] 1 tab PO BID 02/13/19 [History] Past Medical History HEENT History: Reports: Impaired Vision Other HEENT History: wears glasses Cardiovascular History: Reports: High Cholesterol, Hypertension Gastrointestinal History: Reports: GERD Genitourinary History: Reports: STD Other Genitourinary History: herpes [employer]TE[employer]PER[employer]OR History: Reports: Endocrine/Metabolic History: Reports: Diabetes, Type II Hematologic History: Reports: Other (See Below) Other Hematologic History: low platelets - Infectious Disease History Infectious Disease History: Reports: Chicken Pox, Influenza - Past Surgical History HEENT Surgical History: Reports: Naso-Sinus Surgery GI Surgical History: Reports: Cholecystectomy Female Surgical History: Reports: Section, Oophorectomy Dermatological Surgical History: Reports: Skin Graft Social & Family History - Family History Family Medical History: Noncontributory - Tobacco Use Smoking Status *Q: Never Smoker Years of Tobacco use: 29 Packs/Tins Daily: 1 Used Tobacco, but Quit: No Second Hand Smoke Exposure: No - Caffeine Use Caffeine Use: Reports: None Other Caffeine Use: 2 cokes every day - Recreational Drug Use Recreational Drug Use: No H&P Review of Systems - Review of Systems: Review Of Systems: See Below General: Reports: No Symptoms, Weakness. Denies: Fever, Chills, Malaise, Fatigue HEENT: Reports: No Symptoms. Denies: Headaches, Sore Throat Pulmonary: Reports: Shortness of Breath, Wheezing, Cough. Denies: Pleuritic Chest Pain, Sputum Cardiovascular: Reports: Dyspnea on Exertion. Denies: Chest Pain, Palpitations , Edema, Lightheadedness Gastrointestinal: Reports: No Symptoms. Denies: Abdominal Pain, Constipation, Nausea, Vomiting Genitourinary: Reports: No Symptoms. Denies: Pain Musculoskeletal: Reports: No Symptoms Skin: Reports: No Symptoms. Denies: Cyanosis Psychiatric: Reports: No Symptoms. Denies: Confusion Neurological: Reports: No Symptoms Hematologic/Lymphatic: Reports: No Symptoms Immunologic: Reports: No Symptoms Exam - Exam Exam: See Below - Vital Signs Vital Signs: Last Vital Signs Temp 98.6 F 02/12/19 16:35 Pulse 120 H 02/12/19 23:41 Resp 20 02/12/19 16:35 BP 128/92 H 02/12/19 23:41 Pulse Ox 93 L 02/13/19 06:16 Weight: 191 lb 12.8 oz - Exam Quality Assessment: Supplemental Oxygen (1.5L), DVT Prophylaxis General: Alert, Oriented, Cooperative. No: Mild Distress HEENT: Conjunctiva Clear, EACs Clear, EOMI, Hearing Intact, Mucosa Moist & [place] , Nares Patent, Posterior Pharynx Clear, PERRLA Neck: Supple, Trachea Midline Lungs: Normal Respiratory Effort, Decreased Breath Sounds, Rhonchi, Wheezing Cardiovascular: Regular Rhythm, Tachycardia GI/Abdominal Exam: Normal Bowel Sounds, Soft, Non-Tender, No Distention, No Abnormal Bruit (Female) Exam: Deferred Rectal (Female) Exam: Deferred Back Exam: Normal Inspection, Full Range of Motion Extremities: Normal Inspection, Normal Range of Motion, Non-Tender, No Pedal Edema, Normal Capillary Refill Peripheral Pulses: 2+: Radial (L), Radial (R), Dorsalis Pedis (L), Dorsalis Pedis (R) Skin: Warm, Dry, Intact Neurological: Cranial Nerves Intact (grossly ) Neuro Extensive - Mental Status: Alert, Oriented x3, Normal Mood/Affect - Patient Data Lab Results Last 24 hrs: Laboratory Results - last 24 hr 02/12/19 02/12/19 02/12/19 Range/Units 17:15 17:55 17:55 WBC 9.96 (3.98-10.04) K/mm3 RBC 4.77 (3.98-5.22) M/mm3 Hgb 14.3 (11.2-15.7) gm/L Hct 42.7 (34.1-44.9) % MCV 89.5 (79.4-94.8) fl MCH 30.0 (25.6-32.2) pg MCHC 33.5 (32.2-35.5) g/dl RDW Std Deviation 43.5 (36.4-46.3) fL Plt Count 104 L (182-369) K/mm3 MPV TNP Neut % (Auto) 62.0 (34.0-71.1) % Lymph % (Auto) 22.1 (19.3-51.7) % [place] % (Auto) 10.1 (4.7-12.5) % Eos % (Auto) 4.7 (0.7-5.8) Baso % (Auto) 0.9 (0.1-1.2) % Neut # (Auto) 6.17 H (1.56-6.13) K/mm3 Lymph # (Auto) 2.20 (1.18-3.74) K/mm3 [place] # (Auto) 1.01 H (0.24-0.36) K/mm3 Eos # (Auto) 0.47 H (0.04-0.36) K/mm3 Baso # (Auto) 0.09 H (0.01-0.08) K/mm3 Manual Slide Review Abnormal smear D-Dimer, Quantitative 0.51 H (0.19-0.50) mg/L Puncture Site ABG pH (7.35-7.45) ABG pCO2 (35.0-45.0) mmHg ABG pO2 (80.0-100.0) mmHg ABG HCO3 (22.0-26.0) meq/L ABG O2 Saturation (96.0-97.0) % ABG Base Excess (-2-2.0) Lei Test A-a Gradient mmHg O2 Delivery Device Oxygen Flow Rate FiO2 (21.00-100.00) % Sodium 141 (136-145) mEq/L Potassium 3.1 L (3.5-5.1) mEq/L Chloride 104 (98-107) mEq/L Carbon Dioxide 26 (21-32) mEq/L Anion Gap 14.1 (5-15) BUN 9 (7-18) mg/dL Creatinine 0.8 (0.55-1.02) mg/dL Est Cr Clr Drug Dosing 68.76 mL/min Estimated GFR (MDRD) > 60 (>60) mL/min BUN/Creatinine Ratio 11.3 L (14-18) Glucose 119 H (74-106) mg/dL POC Glucose (70-105) mg/dL Calcium 9.6 (8.5-10.1) mg/dL Total Bilirubin 0.4 (0.2-1.0) mg/dL AST 22 (15-37) U/L ALT 26 (14-59) U/L Alkaline Phosphatase 101 (46-116) U/L Troponin I (0.00-0.056) ng/mL C-Reactive Protein 7.0 H* (<1.0) mg/dL NT-Pro-B Natriuret Pep (0-125) pg/mL Total Protein 8.3 H (6.4-8.2) g/dl Albumin 3.4 (3.4-5.0) g/dl Globulin 4.9 gm/dL Albumin/Globulin Ratio 0.7 L (1-2) Mycoplasma pneumon IgM (NEGATIVE) 02/12/19 02/12/19 02/12/19 Range/Units 17:55 18:20 20:25 WBC (3.98-10.04) K/mm3 RBC (3.98-5.22) M/mm3 Hgb (11.2-15.7) gm/L Hct (34.1-44.9) % MCV (79.4-94.8) fl MCH (25.6-32.2) pg MCHC (32.2-35.5) g/dl RDW Std Deviation (36.4-46.3) fL Plt Count (182-369) K/mm3 MPV Neut % (Auto) (34.0-71.1) % Lymph % (Auto) (19.3-51.7) % [place] % (Auto) (4.7-12.5) % Eos % (Auto) (0.7-5.8) Baso % (Auto) (0.1-1.2) % Neut # (Auto) (1.56-6.13) K/mm3 Lymph # (Auto) (1.18-3.74) K/mm3 [place] # (Auto) (0.24-0.36) K/mm3 Eos # (Auto) (0.04-0.36) K/mm3 Baso # (Auto) (0.01-0.08) K/mm3 Manual Slide Review D-Dimer, Quantitative (0.19-0.50) mg/L Puncture Site Rt radial ABG pH 7.43 (7.35-7.45) ABG pCO2 38.2 (35.0-45.0) mmHg ABG pO2 67.0 L (80.0-100.0) mmHg ABG HCO3 24.7 (22.0-26.0) meq/L ABG O2 Saturation 94.4 L (96.0-97.0) % ABG Base Excess 1.0 (-2-2.0) Lei Test Positive A-a Gradient 90 mmHg O2 Delivery Device Nasal cannula Oxygen Flow Rate 3.0 FiO2 32.00 (21.00-100.00) % Sodium (136-145) mEq/L Potassium (3.5-5.1) mEq/L Chloride (98-107) mEq/L Carbon Dioxide (21-32) mEq/L Anion Gap (5-15) BUN (7-18) mg/dL Creatinine (0.55-1.02) mg/dL Est Cr Clr Drug Dosing mL/min Estimated GFR (MDRD) (>60) mL/min BUN/Creatinine Ratio (14-18) Glucose (74-106) mg/dL POC Glucose (70-105) mg/dL Calcium (8.5-10.1) mg/dL Total Bilirubin (0.2-1.0) mg/dL AST (15-37) U/L ALT (14-59) U/L Alkaline Phosphatase (46-116) U/L Troponin I (0.00-0.056) ng/mL C-Reactive Protein (<1.0) mg/dL NT-Pro-B Natriuret Pep 237 H (0-125) pg/mL Total Protein (6.4-8.2) g/dl Albumin (3.4-5.0) g/dl Globulin gm/dL Albumin/Globulin Ratio (1-2) Mycoplasma pneumon IgM Negative (NEGATIVE) 02/12/19 02/13/19 02/13/19 Range/Units 22:25 05:30 06:01 WBC 7.19 (3.98-10.04) K/mm3 RBC 4.58 (3.98-5.22) M/mm3 Hgb 13.8 (11.2-15.7) gm/L Hct 41.2 (34.1-44.9) % MCV 90.0 (79.4-94.8) fl MCH 30.1 (25.6-32.2) pg MCHC 33.5 (32.2-35.5) g/dl RDW Std Deviation 43.3 (36.4-46.3) fL Plt Count 89 L (182-369) K/mm3 MPV Neut % (Auto) 85.3 H (34.0-71.1) % Lymph % (Auto) 13.2 L (19.3-51.7) % [place] % (Auto) 1.3 L (4.7-12.5) % Eos % (Auto) 0 L (0.7-5.8) Baso % (Auto) 0.1 (0.1-1.2) % Neut # (Auto) 6.13 (1.56-6.13) K/mm3 Lymph # (Auto) 0.95 L (1.18-3.74) K/mm3 [place] # (Auto) 0.09 L (0.24-0.36) K/mm3 Eos # (Auto) 0.00 L (0.04-0.36) K/mm3 Baso # (Auto) 0.01 (0.01-0.08) K/mm3 Manual Slide Review D-Dimer, Quantitative (0.19-0.50) mg/L Puncture Site ABG pH (7.35-7.45) ABG pCO2 (35.0-45.0) mmHg ABG pO2 (80.0-100.0) mmHg ABG HCO3 (22.0-26.0) meq/L ABG O2 Saturation (96.0-97.0) % ABG Base Excess (-2-2.0) Lei Test A-a Gradient mmHg O2 Delivery Device Oxygen Flow Rate FiO2 (21.00-100.00) % Sodium (136-145) mEq/L Potassium (3.5-5.1) mEq/L Chloride (98-107) mEq/L Carbon Dioxide (21-32) mEq/L Anion Gap (5-15) BUN (7-18) mg/dL Creatinine (0.55-1.02) mg/dL Est Cr Clr Drug Dosing mL/min Estimated GFR (MDRD) (>60) mL/min BUN/Creatinine Ratio (14-18) Glucose (74-106) mg/dL POC Glucose 206 H (70-105) mg/dL Calcium (8.5-10.1) mg/dL Total Bilirubin (0.2-1.0) mg/dL AST (15-37) U/L ALT (14-59) U/L Alkaline Phosphatase (46-116) U/L Troponin I < 0.017 (0.00-0.056) ng/mL C-Reactive Protein (<1.0) mg/dL NT-Pro-B Natriuret Pep (0-125) pg/mL Total Protein (6.4-8.2) g/dl Albumin (3.4-5.0) g/dl Globulin gm/dL Albumin/Globulin Ratio (1-2) Mycoplasma pneumon IgM (NEGATIVE) Result Diagrams: 02/13/19 05:30 02/13/19 05:30 Panfilo Results Last 24 hrs: Microbiology 02/13/19 00:00 Gram Stain - Final Sputum - Expectorated 02/12/19 21:19 Influenza Type A Antigen Screen - Final Nasopharyngeal Swab NEGATIVE INFLUENZA A VIRUS AG Influenza Type B Antigen Screen - Final NEGATIVE INFLUENZA B VIRUS AG - Problem List (1) Cough SNOMED Code(s): 33774567 ICD Code: R05 - COUGH Status: Acute Current Visit: Yes (2) Hypoxia SNOMED Code(s): 354462055 ICD Code: R09.02 - HYPOXEMIA Status: Acute Current Visit: Yes (3) Reactive airway disease SNOMED Code(s): 524548096527 ICD Code: J45.909 - UNSPECIFIED ASTHMA, UNCOMPLICATED Status: Acute Current Visit: Yes (4) Suspected chronic obstructive pulmonary disease based on initial evaluation SNOMED Code(s): 10681366 ICD Code: J44.9 - CHRONIC OBSTRUCTIVE PULMONARY DISEASE, UNSPECIFIED Status : Acute Priority: High Current Visit: Yes (5) Hyperthyroidism SNOMED Code(s): 34706488 ICD Code: E05.90 - THYROTOXICOSIS, UNSP WITHOUT THYROTOXIC CRISIS OR STORM Status: Acute Priority: High Current Visit: Yes (6) Acute respiratory failure with hypoxia SNOMED Code(s): 97699642, 648533491 ICD Code: J96.01 - ACUTE RESPIRATORY FAILURE WITH HYPOXIA Status: Resolved Priority: High Current Visit: Yes Problem List Initiated/Reviewed/Updated: Yes Orders Last 24hrs: Active Orders 24 hr Category Date Time Status Patient Status [ADT] Routine ADT 02/12/19 21:19 Active Antiembolic Devices [RC] PER UNIT ROUTINE Care 02/12/19 22:57 Active Blood Glucose Check, Bedside [RC] QIDACANDBED Care 02/12/19 23:01 Active Cardiac Monitoring [RC] CONTINUOUS Care 02/12/19 22:55 Active Flutter Valve Therapy [RT Chest Physiotherapy] [RC] Care 02/12/19 23:09 Active ASDIRECTED Height and Weight [RC] DAILY Care 02/12/19 22:55 Active Influenza Vaccine Charge [RC] .DISCHARGE Care 02/12/19 21:39 Active Intake and Output [RC] QSHIFT Care 02/12/19 22:55 Active Oxygen Therapy [RC] PRN Care 02/12/19 22:55 Active RT Aerosol Therapy [RC] ASDIRECTED Care 02/12/19 22:58 Active Up With Assistance [RC] ASDIRECTED Care 02/12/19 22:55 Active Up ad Becca [RC] ASDIRECTED Care 02/12/19 22:55 Active VTE/DVT Education [RC] PER UNIT ROUTINE Care 02/12/19 22:55 Active Vital Signs [RC] Q4HR Care 02/12/19 22:55 Active Consult to Case Management/Corset Fitter [CONS] Cons 02/12/19 22:57 Active Routine Consult to Automobile Seat Cover Installer [CONS] Routine Cons 02/12/19 22:57 Active Consult to Spiritual Care [CONS] Routine Cons 02/12/19 22:57 Active OT Evaluation and Treatment [CONS] Routine Cons 02/12/19 22:57 Active PT Evaluation and Treatment [CONS] Routine Cons 02/12/19 22:57 Active Respiratory Care Assess and Treatment [CONS] Routine Cons 02/12/19 22:57 Active Heart Healthy Diet [DIET] Diet 02/12/19 Dinner Active Chest 1V Frontal [CR] AM Exams 02/14/19 05:11 Ordered A1C [GLYCOSYLATED HEMOGLOBIN,HGBA1C] [CHEM] AM Lab 02/13/19 05:30 Received BASIC METABOLIC PANEL,BMP [CHEM] AM Lab 02/13/19 05:30 Received BASIC METABOLIC PANEL,BMP [CHEM] AM Lab 02/14/19 05:11 Ordered BASIC METABOLIC PANEL,BMP [CHEM] AM Lab 02/15/19 05:11 Ordered BASIC METABOLIC PANEL,BMP [CHEM] AM Lab 02/16/19 05:11 Ordered C-REACTIVE PROTEIN [CHEM] AM Lab 02/13/19 05:30 Received C-REACTIVE PROTEIN [CHEM] AM Lab 02/14/19 05:11 Ordered C-REACTIVE PROTEIN [CHEM] AM Lab 02/15/19 05:11 Ordered C-REACTIVE PROTEIN [CHEM] AM Lab 02/16/19 05:11 Ordered CBC WITH AUTO DIFF [HEME] AM Lab 02/13/19 05:30 Results CBC WITH AUTO DIFF [HEME] AM Lab 02/14/19 05:11 Ordered CBC WITH AUTO DIFF [HEME] AM Lab 02/15/19 05:11 Ordered CBC WITH AUTO DIFF [HEME] AM Lab 02/16/19 05:11 Ordered CULTURE SPUTUM + SMEAR [RM] Stat Lab 02/13/19 00:00 Results MAGNESIUM [CHEM] Routine Lab 02/13/19 05:30 Received T4 FREE [CHEM] AM Lab 02/13/19 05:30 Received TSH [CHEM] AM Lab 02/13/19 05:30 Received Acetaminophen [Tylenol] Med 02/12/19 22:57 Active 650 mg PO Q4H PRN Acetaminophen/HYDROcodone [[place] 325-5 MG] Med 02/12/19 22:57 Active 1 tab PO Q4H PRN Albuterol/Ipratropium [DuoNeb 3.0-0.5 MG/3 ML] Med 02/13/19 06:00 Active 3 ml NEB BIDRT Albuterol/Ipratropium [DuoNeb 3.0-0.5 MG/3 ML] Med 02/12/19 22:57 Active 3 ml NEB Q4H PRN Azithromycin [Zithromax] Med 02/13/19 09:00 Active 250 mg PO DAILY Bisacodyl [Dulcolax] Med 02/12/19 22:57 Active 5 mg PO DAILY PRN Dextromethorphan/guaiFENesin [Robitussin DM] Med 02/13/19 07:00 Active 10 ml PO TID@0700,1400,2100 Dextrose 50% in Water Med 02/12/19 23:01 Active 50 ml IVPUSH ASDIRECTED PRN Docusate Sodium [Colace] Med 02/12/19 22:57 Active 100 mg PO BID PRN Docusate Sodium/Sennosides [Senna Plus] Med 02/12/19 22:57 Active 1 tab PO BID PRN Insulin Lispro [HumaLOG] Med 02/13/19 07:00 Active See Protocol SUBCUT QIDACANDBED LORazepam [Ativan] Med 02/12/19 22:57 Active 1 mg IV Q6H PRN Lisinopril [Prinivil] Med 02/13/19 09:00 Active 20 mg PO DAILY Metoprolol Tartrate [Lopressor] Med 02/12/19 22:55 Active 5 mg IVPUSH Q4H PRN Morphine Med 02/12/19 22:55 Active 2 mg IVPUSH Q4H PRN Ondansetron [Zofran] Med 02/12/19 22:57 Active 4 mg IV Q6H PRN Pantoprazole [ProTONIX] Med 02/13/19 07:00 Active 40 mg PO DAILY@0700 Pharmacy to Dose - Magnesium R [Pharmacy to Dose - Med 02/12/19 23:00 Pending Magnesium Replacement] 1 dose .XX ASDIRECTED Pharmacy to Dose - Potassium R [Pharmacy to Dose - Med 02/12/19 23:00 Pending Potassium Replacement] 1 dose .XX ASDIRECTED Polyethylene Glycol 3350 [MiraLAX] Med 02/12/19 22:57 Active 17 gm PO DAILY PRN Potassium Chloride [Klor-Con M20] Med 02/13/19 04:00 Active 40 meq PO Q4H Simvastatin [Zocor] Med 02/13/19 21:00 Active 10 mg PO BEDTIME Temazepam [Restoril] Med 02/12/19 22:57 Active 15 mg PO BEDTIME PRN Terbutaline [Brethine] Med 02/13/19 09:00 Active 2.5 mg PO BID Tiotropium [Spiriva HandiHaler] Med 02/13/19 09:00 Pending 18 mcg INH DAILY hydrALAZINE [Apresoline] Med 02/12/19 22:55 Active 20 mg IVPUSH Q4H PRN hydroCHLOROthiazide Med 02/13/19 09:00 Active 12.5 mg PO DAILY methylPREDNISolone Sod Succ [Solu-MEDROL] Med 02/13/19 01:00 Active 80 mg IVPUSH Q6H Sequential Compression Device [OM.PC] Per Unit Routine Oth 02/12/19 22:56 Ordered Resuscitation Status Routine Resus Stat 02/12/19 22:55 Ordered Medication Orders Acetaminophen (Tylenol) 650 mg PO Q4H PRN PRN Reason: Pain (Mild 1-3)/fever Hydrocodone Bitart/Acetaminophen ([place] 325-5 Mg) 1 tab PO Q4H PRN PRN Reason: Pain (moderate 4-6) Albuterol/Ipratropium (Duoneb 3.0-0.5 Mg/3 Ml) 3 ml NEB Q4H PRN PRN Reason: Shortness Of Breath/wheezing Last Admin: 02/12/19 23:26 Dose: 3 ml Albuterol/Ipratropium (Duoneb 3.0-0.5 Mg/3 Ml) 3 ml NEB BIDRT AYSE Last Admin: 02/13/19 06:13 Dose: 3 ml Azithromycin (Zithromax) 250 mg PO DAILY AYSE Stop: 02/15/19 09:01 Bisacodyl (Dulcolax) 5 mg PO DAILY PRN PRN Reason: Constipation Dextrose/Water (Dextrose 50% In Water) 50 ml IVPUSH ASDIRECTED PRN PRN Reason: Hypoglycemia Docusate Sodium (Colace) 100 mg PO BID PRN PRN Reason: Constipation Last Admin: 02/13/19 00:01 Dose: 100 mg Guaifenesin/Phenylephrine HCl (Robitussin Dm) 10 ml PO TID@0700,1400,2100 [facility] Last Admin: 02/13/19 05:56 Dose: 10 ml Hydralazine HCl (Apresoline) 20 mg IVPUSH Q4H PRN PRN Reason: Hypertension Hydrochlorothiazide (Hydrochlorothiazide) 12.5 mg PO DAILY [facility] Insulin Human Lispro (Humalog) 0 unit SUBCUT QIDACANDBED [facility]; Protocol Lisinopril (Prinivil) 20 mg PO DAILY [facility] Lorazepam (Ativan) 1 mg IV Q6H PRN PRN Reason: Anxiety Magnesium Sulfate (Pharmacy To Dose - Magnesium Replacement) 1 dose .XX ASDIRECTED [facility] Methylprednisolone Sodium Succinate (Solu-Medrol) 80 mg IVPUSH Q6H [facility] Last Admin: 02/13/19 05:58 Dose: 80 mg Admin: 02/13/19 00:12 Dose: 80 mg Metoprolol Tartrate (Lopressor) 5 mg IVPUSH Q4H PRN PRN Reason: Tachycardia Last Admin: 02/12/19 23:41 Dose: 5 mg Morphine Sulfate (Morphine) 2 mg IVPUSH Q4H PRN PRN Reason: Dyspnea Stop: 02/16/19 22:56 Ondansetron HCl (Zofran) 4 mg IV Q6H PRN PRN Reason: Nausea/Vomiting Pantoprazole Sodium (Protonix) 40 mg PO DAILY@0700 [facility] Last Admin: 02/13/19 05:56 Dose: 40 mg Polyethylene Glycol (Miralax) 17 gm PO DAILY PRN PRN Reason: Constipation Potassium Chloride (Pharmacy To Dose - Potassium Replacement) 1 dose .XX ASDIRECTED [facility] Potassium Chloride (Klor-Con M20) 40 meq PO Q4H [facility] Stop: 02/13/19 08:01 Last Admin: 02/13/19 05:57 Dose: 40 meq Senna/Docusate Sodium (Senna Plus) 1 tab PO BID PRN PRN Reason: Constipation Simvastatin (Zocor) 10 mg PO BEDTIME AYSE Temazepam (Restoril) 15 mg PO BEDTIME PRN PRN Reason: Sleep Last Admin: 02/13/19 00:58 Dose: 15 mg Terbutaline Sulfate (Brethine) 2.5 mg PO BID AYSE Stop: 02/14/19 21:01 Tiotropium [place] (Spiriva Handihaler) 18 mcg INH DAILY [facility] Assessment/Plan Comment:: I/P: Acute RAD -Suspected underlying COPD exacerbation although not formally diagnosed with COPD per patient -Reports SOB and cough that started 3 weeks ago -Treated for Influenza A in January with Tamiflu - feels like she recovered -In ED on 02/06/19 for bronchitis and given z-latricia and promethazine with codeine cough syrup -Finished antibiotic but feels like she has gotten worse -Saturations 84% on RA in ED, 94% on 3L -Does not usually use home O2. -Hx/o seasonal allergies on claritin and benadryl PRN; 10 year PPD smoker who has been quitting -No known COPD, Asthma, CHF, SEBAS - Reportedly had PFT done many years ago in [place] with no airway diagnosis -CXR in ED shows nothing acute -Mycoplasma negative -No leukocytosis -CRP 7.0 -BNP 237 -Magnesium 2.0 -Duoneb given in ED - continue scheduled as ordered -Started azithromycin 250mg daily -D-dimer 0.51 -ABG in ED: PH 7.43. PCO2 38.2. PO2 67.0. HCO3 24.7. O2 saturation 94.4. While on 3L -IS/Acapella/RT -125mg Solu-medrol given in ED - Continue to taper as ordered -Robitussin DM TID as ordered -Glycopyrrolate as ordered -Terbutaline 2.5mg BID for 4 doses -Sputum culture ordered -CXR in 24-48 hours -Suggest PFT after discharge once symptoms resolve Hyperthyroidism -TSH 0.055 -T4 1.81 -Obtain old records from [place] -PCP to follow-up Tachycardia -HR in 110's to 120's -Believed to be 2/2 medications in combination with above -Switched albuterol to xopenex -Will work on stepping down steroid -Metoprolol 25mg BID starting now Resolved: S/P Acute respiratory failure -Requiring 4L O2 in ED -Continued hypoxia, complaints of SOB -ABG as above -Treatment as above -2mg Morphine given with good results Chronic: HTN HLD "Pre-diabetes" - A1C here 5.7 GERD - continue home PPI Plan: Admit to medical floor observation status with telemetry Home medications as ordered Routine AM labs PT/OT Obtain old PFT from [facility] in [place] CM/SW for discharge planning [employer] consult Spiritual care consult Other orders as indicated above DVT prophylaxis: SCDs Code status: Full code; PCP: Carlotta Rubio PA-C
[2019-02-13 07:39] LABS: HEMOGLOBIN A1C 5.7 % (4.50-6.20)
[2019-02-13] MEDS: Lisinopril 20 MG Tab PO SCH (08:04)
[2019-02-13] MEDS: Azithromycin 250 MG Tab PO SCH (08:05)
[2019-02-13] MEDS: Insulin Lispro 100 Units/ML 3 ML Vial SUBCUT SCH ×4 (08:06→21:59)
[2019-02-13] MEDS ORDERED: Hydrochlorothiazide 12.5 MG Cap PO SCH (09:00)
[2019-02-13] MEDS ORDERED: OMEPRAZOLE 30 MG PO SCH (09:00)
[2019-02-13] MEDS: Albuterol/Ipratropium 3.0-0.5 MG/3 ML Neb Soln NEB PRN (09:21)
[2019-02-13] MEDS: Glycopyrrolate 15.6 MCG Cap.W.Dev Kit of 6 IH SCH ×2 (09:22→20:36)
[2019-02-13] MEDS ORDERED: 50% Dextrose in Water 50 ML SDV IV PRN (09:48)
[2019-02-13] MEDS: Metoprolol Tartrate 5 MG/5 ML SDV IVPUSH PRN ×2 (10:36→15:47)
[2019-02-13] MEDS ORDERED: Levalbuterol HCl 1.25 MG/3 ML Neb NEB PRN (10:41)
[2019-02-13] MEDS: VARENICLINE TARTRATE PO SCH ×2 (12:00→20:17)
[2019-02-13] MEDS: Metoprolol Tartrate 25 MG Tab PO SCH ×2 (13:11→20:16)
[2019-02-13] MEDS ORDERED: cloNIDine 0.3 MG/Day Transdermal Patch TRDERM ONE (15:58)
[2019-02-13] MEDS: Hydrochlorothiazide 12.5 MG Cap PO SCH (17:59)
--- NOTE | 2019-02-13 19:37 | PCM.SN ---
- Free Text/Narrative Note: Patient had a choking spell while having supper this evening. She was eating a burger and it appeared she may have tried to swallow more than what she can chew. Fortunately, we were nearby just across her room when she the incident occurred. Myself, (Rupa) and Stephanie (OTONIEL), all responded to her and later followed by [facility] floor nurse with a Marie. Patient was able to recover after we immediately tended to her. Chest x-ray is pending.
[2019-02-13] MEDS: Simvastatin 10 MG Tab PO SCH (20:16)
[2019-02-13] MEDS: Diltiazem 50 MG/10 ML SDV IVPUSH PRN (20:27)
[2019-02-13] MEDS: Acetylcysteine 20% 200 MG/ML 4 ML Nebulizer Soln SDV NEB SCH (20:30)
[2019-02-13] MEDS: Levalbuterol HCl 1.25 MG/3 ML Neb NEB SCH (20:31)
[2019-02-13] MEDS ORDERED: Non-Formulary Medication 1 Each (Atorvastatin 10 MG) PO SCH (21:00)
[2019-02-14] MEDS: methylPREDNISolone Sodium Succinate 40 MG/1 ML SDV IVPUSH SCH ×4 (01:13→23:11)
[2019-02-14] MEDS: Acetylcysteine 20% 200 MG/ML 4 ML Nebulizer Soln SDV NEB SCH ×2 (05:45→20:31)
[2019-02-14] MEDS: Levalbuterol HCl 1.25 MG/3 ML Neb NEB SCH ×2 (05:45→20:31)
[2019-02-14] MEDS: Pantoprazole 40 MG Tab.CR PO SCH (07:04)
[2019-02-14] MEDS: Hydrochlorothiazide 12.5 MG Cap PO SCH ×2 (07:04→14:22)
--- NOTE | 2019-02-14 07:12 | PCM.PN ---
- General Info Date of Service: 02/14/19 Admission Dx/Problem (Free Text): Admission Diagnosis/Problem Admission Diagnosis/Problem Hypoxia Subjective Update: In to see Aurelio. Dr. Booker was in to see her as well and no thyromegaly or thyroid nodules were noted on his exam. She will have a thyroid ultrasound as her TSH is low and T4 is high. Multiple variations of T3 have been ordered as well. She will likely require follow-up for this in the future. She reports she feels better today than she has in several weeks. Wheezing has improved but is still present. HR is in the 90s now. No patient or nursing concerns. Hopeful for discharge tomorrow pending US results. Functional Status: Reports: Pain Controlled, Tolerating Diet, Ambulating, Urinating, Incentive Spirometry, Other (acapella ). Denies: New Symptoms - Review of Systems General: Reports: Weakness (improving ). Denies: Fever, Fatigue, Malaise, Chills HEENT: Reports: No Symptoms. Denies: Headaches, Sore Throat Pulmonary: Reports: Cough, Wheezing (improved ). Denies: Shortness of Breath ( reports none currently ), Pleuritic Chest Pain Cardiovascular: Reports: Dyspnea on Exertion (improved ). Denies: Chest Pain, Palpitations, Edema, Lightheadedness Gastrointestinal: Reports: No Symptoms. Denies: Abdominal Pain, Constipation, Diarrhea, Nausea, Vomiting Genitourinary: Reports: No Symptoms. Denies: Pain Musculoskeletal: Reports: No Symptoms Skin: Reports: No Symptoms. Denies: Cyanosis Neurological: Reports: No Symptoms. Denies: Confusion, Headache, Numbness, Pre- Existing Deficit, Tingling, Trouble Speaking, Difficulty Walking, Gait Disturbance Psychiatric: Reports: No Symptoms - Patient Data Vitals - Most Recent: Last Vital Signs Temp 97.5 F 02/14/19 04:22 Pulse 106 H 02/14/19 04:22 Resp 22 H 02/14/19 04:22 BP 128/87 02/14/19 04:22 Pulse Ox 94 L 02/14/19 05:48 Weight - Most Recent: 194 lb I&O - Last 24 Hours: Intake & Output 02/13/19 02/14/19 02/14/19 22:59 06:59 14:59 Intake Total 1500 600 Output Total 400 750 Balance 1100 -150 Lab Results Last 24 Hours: Laboratory Results - last 24 hr 02/13/19 02/13/19 02/13/19 Range/Units 05:30 11:45 16:55 WBC (3.98-10.04) K/mm3 RBC (3.98-5.22) M/mm3 Hgb (11.2-15.7) gm/L Hct (34.1-44.9) % MCV (79.4-94.8) fl MCH (25.6-32.2) pg MCHC (32.2-35.5) g/dl RDW Std Deviation (36.4-46.3) fL Plt Count (182-369) K/mm3 Neut % (Auto) (34.0-71.1) % Lymph % (Auto) (19.3-51.7) % [place] % (Auto) (4.7-12.5) % Eos % (Auto) (0.7-5.8) Baso % (Auto) (0.1-1.2) % Neut # (Auto) (1.56-6.13) K/mm3 Lymph # (Auto) (1.18-3.74) K/mm3 [place] # (Auto) (0.24-0.36) K/mm3 Eos # (Auto) (0.04-0.36) K/mm3 Baso # (Auto) (0.01-0.08) K/mm3 Manual Slide Review Sodium (136-145) mEq/L Potassium (3.5-5.1) mEq/L Chloride (98-107) mEq/L Carbon Dioxide (21-32) mEq/L Anion Gap (5-15) BUN (7-18) mg/dL Creatinine (0.55-1.02) mg/dL Est Cr Clr Drug Dosing mL/min Estimated GFR (MDRD) (>60) mL/min BUN/Creatinine Ratio (14-18) Glucose (74-106) mg/dL POC Glucose 268 H 161 H (70-105) mg/dL Hemoglobin A1c 5.70 (4.50-6.20) % Calcium (8.5-10.1) mg/dL Magnesium (1.8-2.4) mg/dl C-Reactive Protein (<1.0) mg/dL 02/13/19 02/13/19 02/14/19 Range/Units 19:50 21:00 05:40 WBC (3.98-10.04) K/mm3 RBC (3.98-5.22) M/mm3 Hgb (11.2-15.7) gm/L Hct (34.1-44.9) % MCV (79.4-94.8) fl MCH (25.6-32.2) pg MCHC (32.2-35.5) g/dl RDW Std Deviation (36.4-46.3) fL Plt Count (182-369) K/mm3 Neut % (Auto) (34.0-71.1) % Lymph % (Auto) (19.3-51.7) % [place] % (Auto) (4.7-12.5) % Eos % (Auto) (0.7-5.8) Baso % (Auto) (0.1-1.2) % Neut # (Auto) (1.56-6.13) K/mm3 Lymph # (Auto) (1.18-3.74) K/mm3 [place] # (Auto) (0.24-0.36) K/mm3 Eos # (Auto) (0.04-0.36) K/mm3 Baso # (Auto) (0.01-0.08) K/mm3 Manual Slide Review Sodium 136 (136-145) mEq/L Potassium 4.4 (3.5-5.1) mEq/L Chloride 102 (98-107) mEq/L Carbon Dioxide 22 (21-32) mEq/L Anion Gap 16.4 H (5-15) BUN 22 H (7-18) mg/dL Creatinine 1.0 (0.55-1.02) mg/dL Est Cr Clr Drug Dosing 55.01 mL/min Estimated GFR (MDRD) 59 (>60) mL/min BUN/Creatinine Ratio 22.0 H (14-18) Glucose 222 H (74-106) mg/dL POC Glucose 203 H 210 H (70-105) mg/dL Hemoglobin A1c (4.50-6.20) % Calcium 9.4 (8.5-10.1) mg/dL Magnesium 1.8 (1.8-2.4) mg/dl C-Reactive Protein (<1.0) mg/dL 02/14/19 02/14/19 Range/Units 05:42 05:42 WBC 15.89 H (3.98-10.04) K/mm3 RBC 4.42 (3.98-5.22) M/mm3 Hgb 13.4 (11.2-15.7) gm/L Hct 39.9 (34.1-44.9) % MCV 90.3 (79.4-94.8) fl MCH 30.3 (25.6-32.2) pg MCHC 33.6 (32.2-35.5) g/dl RDW Std Deviation 44.1 (36.4-46.3) fL Plt Count 99 L (182-369) K/mm3 Neut % (Auto) 91.3 H (34.0-71.1) % Lymph % (Auto) 6.7 L (19.3-51.7) % [place] % (Auto) 1.9 L (4.7-12.5) % Eos % (Auto) 0 L (0.7-5.8) Baso % (Auto) 0.0 L (0.1-1.2) % Neut # (Auto) 14.51 H (1.56-6.13) K/mm3 Lymph # (Auto) 1.06 L (1.18-3.74) K/mm3 [place] # (Auto) 0.30 (0.24-0.36) K/mm3 Eos # (Auto) 0.00 L (0.04-0.36) K/mm3 Baso # (Auto) 0.00 L (0.01-0.08) K/mm3 Manual Slide Review Abnormal smear Sodium 138 (136-145) mEq/L Potassium 4.1 (3.5-5.1) mEq/L Chloride 103 (98-107) mEq/L Carbon Dioxide 25 (21-32) mEq/L Anion Gap 14.1 (5-15) BUN 23 H (7-18) mg/dL Creatinine 0.8 (0.55-1.02) mg/dL Est Cr Clr Drug Dosing 68.76 mL/min Estimated GFR (MDRD) > 60 (>60) mL/min BUN/Creatinine Ratio 28.8 H (14-18) Glucose 227 H (74-106) mg/dL POC Glucose (70-105) mg/dL Hemoglobin A1c (4.50-6.20) % Calcium 9.4 (8.5-10.1) mg/dL Magnesium (1.8-2.4) mg/dl C-Reactive Protein 5.3 H* (<1.0) mg/dL [place] Results Last 24 Hours: Microbiology 02/13/19 00:00 Gram Stain - Final Sputum - Expectorated Sputum Culture - Preliminary Med Orders - Current: Current Medications Acetaminophen (Tylenol) 650 mg PO Q4H PRN PRN Reason: Pain (Mild 1-3)/fever Hydrocodone Bitart/Acetaminophen ([place] 325-5 Mg) 1 tab PO Q4H PRN PRN Reason: Pain (moderate 4-6) Acetylcysteine (Mucomyst 20%) 800 mg NEB BIDRT [facility] Last Admin: 02/14/19 05:45 Dose: 800 mg Azithromycin (Zithromax) 250 mg PO DAILY [facility] Stop: 02/15/19 09:01 Last Admin: 02/13/19 08:05 Dose: 250 mg Bisacodyl (Dulcolax) 5 mg PO DAILY PRN PRN Reason: Constipation Dextrose/Water (Dextrose 50% In Water) 50 ml IV ASDIRECTED PRN PRN Reason: Hypoglycemia Diltiazem HCl (Cardizem) 10 mg IVPUSH Q4H PRN PRN Reason: Tachycardia Last Admin: 02/13/19 20:27 Dose: 10 mg Docusate Sodium (Colace) 100 mg PO BID PRN PRN Reason: Constipation Last Admin: 02/13/19 00:01 Dose: 100 mg Glycopyrrolate (Seebri Neohaler) 0 mcg IH BID [facility] Last Admin: 02/13/19 20:36 Dose: 1 puff Guaifenesin/Phenylephrine HCl (Robitussin Dm) 10 ml PO QID [facility] Last Admin: 02/13/19 20:15 Dose: 10 ml Hydralazine HCl (Apresoline) 20 mg IVPUSH Q4H PRN PRN Reason: Hypertension Hydrochlorothiazide (Hydrochlorothiazide) 12.5 mg PO BIDDIURETIC [facility] Last Admin: 02/14/19 07:04 Dose: 12.5 mg Insulin Human Lispro (Humalog) 0 unit SUBCUT QIDACANDBED [facility]; Protocol Last Admin: 02/13/19 21:59 Dose: 4 unit Levalbuterol HCl (Xopenex) 1.25 mg NEB BIDRT [facility] Last Admin: 02/14/19 05:45 Dose: 1.25 mg Levalbuterol HCl (Xopenex) 1.25 mg NEB Q4HRRT PRN PRN Reason: SOB/WHEEZING Last Admin: 02/13/19 14:13 Dose: 1.25 mg Lisinopril (Prinivil) 20 mg PO DAILY [facility] Last Admin: 02/13/19 08:04 Dose: 20 mg Lorazepam (Ativan) 1 mg IV Q6H PRN PRN Reason: Anxiety Magnesium Sulfate (Pharmacy To Dose - Magnesium Replacement) 0 dose .XX ASDIRECTED PRN PRN Reason: PHARMACY TO MONITOR Methylprednisolone Sodium Succinate (Solu-Medrol) 60 mg IVPUSH Q8H [facility] Last Admin: 02/14/19 07:04 Dose: 60 mg Metoprolol Tartrate (Lopressor) 25 mg PO BID [facility] Last Admin: 02/13/19 20:16 Dose: 25 mg Miscellaneous Information (Remove Patch) 1 ea TRDERM Q7D ONE Stop: 02/20/19 16:01 Morphine Sulfate (Morphine) 2 mg IVPUSH Q4H PRN PRN Reason: Dyspnea Stop: 02/16/19 22:56 Ondansetron HCl (Zofran) 4 mg IV Q6H PRN PRN Reason: Nausea/Vomiting Pantoprazole Sodium (Protonix) 40 mg PO DAILY@0700 [facility] Last Admin: 02/14/19 07:04 Dose: 40 mg Varenicline Tartrate ([Chantix] Ptom) 0 each PO BID [facility] Last Admin: 02/13/19 20:17 Dose: 1 each Polyethylene Glycol (Miralax) 17 gm PO DAILY PRN PRN Reason: Constipation Potassium Chloride (Pharmacy To Dose - Potassium Replacement) 0 dose .XX ASDIRECTED PRN PRN Reason: PHARMACY TO MONITOR Senna/Docusate Sodium (Senna Plus) 1 tab PO BID PRN PRN Reason: Constipation Simvastatin (Zocor) 10 mg PO BEDTIME [facility] Last Admin: 02/13/19 20:16 Dose: 10 mg Temazepam (Restoril) 15 mg PO BEDTIME PRN PRN Reason: Sleep Last Admin: 02/13/19 22:02 Dose: 15 mg Terbutaline Sulfate (Brethine) 2.5 mg PO BID [facility] Stop: 02/14/19 21:01 Last Admin: 02/13/19 20:16 Dose: 2.5 mg Discontinued Medications Albuterol (Proventil Neb Soln) 2.5 mg NEB ONETIME ONE Stop: 02/12/19 20:15 Last Admin: 02/12/19 20:37 Dose: 2.5 mg Albuterol (Proventil Neb Soln) 2.5 mg NEB ONETIME ONE Stop: 02/12/19 20:45 Last Admin: 02/12/19 21:06 Dose: Not Given Albuterol/Ipratropium (Duoneb 3.0-0.5 Mg/3 Ml) 3 ml NEB Q4H PRN PRN Reason: Shortness Of Breath/wheezing Last Admin: 02/13/19 09:21 Dose: 3 ml Albuterol/Ipratropium (Duoneb 3.0-0.5 Mg/3 Ml) 3 ml NEB BIDRT [facility] Last Admin: 02/13/19 06:13 Dose: 3 ml Clonidine HCl (Catapres-Tts 3) 0.3 mg TRDERM Q7D ONE Stop: 02/13/19 15:59 Last Admin: 02/13/19 17:57 Dose: 0.3 mg Dextrose/Water (Dextrose 50% In Water) 50 ml IVPUSH ASDIRECTED PRN PRN Reason: Hypoglycemia Guaifenesin/Phenylephrine HCl (Robitussin Dm) 10 ml PO TID@0700,1400,2100 [facility] Last Admin: 02/13/19 11:59 Dose: 10 ml Guaifenesin/Phenylephrine HCl (Robitussin Dm) 10 ml PO NOW STA Stop: 02/12/19 23:08 Last Admin: 02/12/19 23:57 Dose: 10 ml Hydrochlorothiazide (Hydrochlorothiazide) 12.5 mg PO DAILY [facility] Last Admin: 02/13/19 08:04 Dose: 12.5 mg Magnesium Sulfate/Dextrose 1 (gm/ Premix) 100 mls @ 100 mls/hr IV ONETIME ONE Stop: 02/13/19 00:03 Last Admin: 02/13/19 01:23 Dose: 100 mls/hr Azithromycin 250 mg/ Sodium (Chloride) 250 mls @ 250 mls/hr IV Q24H ONE Stop: 02/13/19 00:04 Last Admin: 02/13/19 00:02 Dose: 250 mls/hr Influenza Virus Vaccine (Pharmacy To Dose - Influenza Vaccine) 1 each IM ONETIME ONE Stop: 02/12/19 21:40 Influenza Virus Vaccine (Fluzone Quad [id number] Syringe) 60 mcg IM .ONCE ONE Stop: 02/12/19 21:46 Methylprednisolone Sodium Succinate (Solu-Medrol) 125 mg IVPUSH ONETIME ONE Stop: 02/12/19 18:07 Last Admin: 02/12/19 18:51 Dose: 125 mg Methylprednisolone Sodium Succinate (Solu-Medrol) 80 mg IVPUSH Q6H [facility] Stop: 02/14/19 01:00 Last Admin: 02/14/19 01:13 Dose: 80 mg Metoprolol Tartrate (Lopressor) 5 mg IVPUSH Q4H PRN PRN Reason: Tachycardia Last Admin: 02/13/19 15:47 Dose: 5 mg Morphine Sulfate (Morphine) 2 mg IVPUSH ONETIME ONE Stop: 02/12/19 22:23 Last Admin: 02/12/19 22:42 Dose: 2 mg Potassium Chloride (Klor-Con M20) 40 meq PO STAT ONE Stop: 02/12/19 23:16 Last Admin: 02/13/19 00:01 Dose: 40 meq Potassium Chloride (Klor-Con M20) 40 meq PO Q4H [facility] Stop: 02/13/19 08:01 Last Admin: 02/13/19 08:03 Dose: 40 meq Terbutaline Sulfate (Brethine) 2.5 mg PO NOW STA Stop: 02/12/19 23:04 Last Admin: 02/13/19 00:01 Dose: 2.5 mg - Exam Quality Assessment: DVT Prophylaxis. No: Supplemental Oxygen General: Alert, Oriented, Cooperative, No Acute Distress HEENT: Pupils Equal, Pupils Reactive, EOMI, Mucous Membr. Moist/[place] Neck: Supple, Trachea Midline, No JVD, No Thyromegaly. No: Lymphadenopathy Lungs: Normal Respiratory Effort, Decreased Breath Sounds, Wheezing (improved ) Cardiovascular: Regular Rate (HR in 90s), Regular Rhythm GI/Abdominal Exam: Normal Bowel Sounds, Soft, Non-Tender, No Distention, No Abnormal Bruit (Female) Exam: Deferred Back Exam: Normal Inspection, Full Range of Motion Extremities: Normal Inspection, Normal Range of Motion, Non-Tender, No Pedal Edema, Normal Capillary Refill Peripheral Pulses: 2+: Radial (L), Radial (R), Dorsalis Pedis (L), Dorsalis Pedis (R) Skin: Warm, Dry, Intact Neurological: No New Focal Deficit Psy/Mental Status: Alert, Normal Affect, Normal Mood - Problem List & Annotations (1) Cough SNOMED Code(s): 60057789 Code(s): R05 - COUGH Status: Acute Current Visit: Yes (2) Hypoxia SNOMED Code(s): 015509916 Code(s): R09.02 - HYPOXEMIA Status: Acute Current Visit: Yes (3) Reactive airway disease SNOMED Code(s): 418361775823 Code(s): J45.909 - UNSPECIFIED ASTHMA, UNCOMPLICATED Status: Acute Current Visit: Yes (4) Suspected chronic obstructive pulmonary disease based on initial evaluation SNOMED Code(s): 79779334 Code(s): J44.9 - CHRONIC OBSTRUCTIVE PULMONARY DISEASE, UNSPECIFIED Status : Acute Priority: High Current Visit: Yes (5) Hyperthyroidism SNOMED Code(s): 47258530 Code(s): E05.90 - THYROTOXICOSIS, UNSP WITHOUT THYROTOXIC CRISIS OR STORM Status: Acute Priority: High Current Visit: Yes (6) Acute respiratory failure with hypoxia SNOMED Code(s): 66023218, 896203834 Code(s): J96.01 - ACUTE RESPIRATORY FAILURE WITH HYPOXIA Status: Resolved Priority: High Current Visit: Yes - Problem List Review Problem List Initiated/Reviewed/Updated: Yes - My Orders Last 24 Hours: My Active Orders 02/13/19 07:33 RT Incentive Spirometry [RC] ASDIRECTED 02/14/19 07:00 methylPREDNISolone Sod Succ [Solu-MEDROL] 60 mg IVPUSH Q8H - Plan Plan:: I/P: Acute RAD -Suspected underlying COPD exacerbation although not formally diagnosed with COPD per patient -Reports SOB and cough that started 3 weeks ago -Treated for Influenza A in January with Tamiflu - feels like she recovered -In ED on 02/06/19 for bronchitis and given z-latricia and promethazine with codeine cough syrup -Finished antibiotic but feels like she has gotten worse -Saturations 84% on RA in ED, 94% on 3L -Does not usually use home O2. -Hx/o seasonal allergies on claritin and benadryl PRN; 10 year PPD smoker who has been quitting -No known COPD, Asthma, CHF, SEBAS - Reportedly had PFT done many years ago in [place] with no airway diagnosis -CXR in ED shows nothing acute -Mycoplasma, influenza negative -No leukocytosis -CRP 7.0-->9.0-->5.3 -BNP 237 -Magnesium 2.0-->1.8 -Duoneb given in ED - continue scheduled as ordered -Started azithromycin 250mg daily -D-dimer 0.51 -ABG in ED: PH 7.43. PCO2 38.2. PO2 67.0. HCO3 24.7. O2 saturation 94.4. While on 3L -IS/Acapella/RT -125mg Solu-medrol given in ED - Continue to taper as ordered -Robitussin DM TID as ordered -> switched to QID -Glycopyrrolate as ordered -Terbutaline 2.5mg BID for 4 doses -Sputum culture: * Many gram negative coccobacilli * Many gram positive cocci * Few epithelial cells * Few WBCs * Few gram neg rods * Rare gram negative diplococci -Repeat CXR 02/14/19: Nothing acute, no nogueira from prior CXR -Suggest PFT after discharge once symptoms resolve Hyperthyroidism -TSH 0.055 -T4 1.81 -Obtain old records from [place] -Free T3, T3 uptake pending -No thyromegaly or nodules noted on physical exam -Thyroid ultrasound ordered -PCP to follow-up Tachycardia, improved to resolved -HR in 110's to 120's throughout most of stay; 90's today -Believed to be 2/2 medications initially, suspect may be 2/2 hyperthyroid as above -Switched albuterol to xopenex -Will work on stepping down steroid -Metoprolol 25mg BID Resolved: S/P Acute respiratory failure -Requiring 4L O2 in ED -Continued hypoxia, complaints of SOB -ABG as above -Treatment as above -2mg Morphine given with good results Chronic: HTN HLD "Pre-diabetes" - A1C here 5.7 - Switch to high ISS GERD - continue home PPI Plan: Admit to medical floor observation status with telemetry Home medications as ordered Routine AM labs PT/OT Obtain old PFT from [facility] in [place] CM/SW for discharge planning [employer] Operator consult Spiritual care consult Other orders as indicated above DVT prophylaxis: SCDs Code status: Full code; PCP: Carlotta Rubio PA-C Hopeful for discharge 02/14/19 pending thyroid US
[2019-02-14] MEDS: Glycopyrrolate 15.6 MCG Cap.W.Dev Kit of 6 IH SCH ×2 (08:22→20:31)
[2019-02-14] MEDS: Metoprolol Tartrate 25 MG Tab PO SCH (08:37)
[2019-02-14] MEDS: Lisinopril 20 MG Tab PO SCH (08:39)
[2019-02-14] MEDS: guaiFENesin/Dextromethorphan 100-10 MG/5 ML Soln 5 ML Cup PO SCH ×4 (08:39→21:26)
[2019-02-14] MEDS: Azithromycin 250 MG Tab PO SCH (08:40)
[2019-02-14] MEDS: VARENICLINE TARTRATE PO SCH ×2 (08:40→21:28)
[2019-02-14] MEDS: Insulin Lispro 100 Units/ML 3 ML Vial SUBCUT SCH ×4 (08:41→21:26)
--- NOTE | 2019-02-14 09:43 | CR ---
Chest: Portable view of the chest was obtained. Comparison: Prior chest x-ray of 02/12/19. Heart size is normal. Tortuous thoracic aorta is seen. Lung markings are mildly increased which appear stable. No acute parenchymal change is seen. Bony structures are grossly intact. Impression: 1. Nothing acute is seen on portable chest x-ray. No change from previous study. Diagnostic code #2
--- NOTE | 2019-02-14 14:55 | US ---
Thyroid ultrasound: Multiple real-time images of the thyroid gland were obtained. Comparison: No prior thyroid imaging. Findings: Two ill-defined hypoechoic areas are seen within the right lobe measuring 6.1 x 5.5 x 4.8 mm and 1.8 x 1.4 x 0.7 cm. Ill-defined hypoechoic area is also seen within the left lobe of the thyroid gland measuring 2.2 x 1.0 x 0.8 cm. No cyst or additional finding is seen. Measurements: Right lobe: 4.4 x 2.1 x 1.8 cm Left lobe: 4.0 x 1.7 x 1.4 cm Isthmus thickness: 0.3 cm Impression: 1. Ill-defined hypoechoic areas within both lobes of the thyroid gland. Recommend repeat thyroid ultrasound in 6 months to confirm stability. Diagnostic code #3
[2019-02-14] MEDS: Diltiazem 50 MG/10 ML SDV IVPUSH PRN (15:32)
[2019-02-14] MEDS ORDERED: Methimazole 5 MG Tab PO ONE (15:38)
[2019-02-14] MEDS: Methimazole 5 MG Tab PO SCH (21:27)
[2019-02-14] MEDS: Metoprolol Tartrate 50 MG Tab PO SCH (21:27)
[2019-02-14] MEDS: Simvastatin 10 MG Tab PO SCH (21:28)
[2019-02-14] MEDS: glipiZIDE 2.5 MG Tab.ER PO SCH (21:28)
[2019-02-14] MEDS: Temazepam 15 MG Cap PO PRN (23:11)
[2019-02-15] MEDS: Methimazole 5 MG Tab PO SCH (06:06)
[2019-02-15] MEDS: Hydrochlorothiazide 12.5 MG Cap PO SCH (06:06)
[2019-02-15] MEDS: Pantoprazole 40 MG Tab.CR PO SCH (06:07)
[2019-02-15] MEDS: Levalbuterol HCl 1.25 MG/3 ML Neb NEB SCH (06:41)
[2019-02-15] MEDS: Acetylcysteine 20% 200 MG/ML 4 ML Nebulizer Soln SDV NEB SCH (06:41)
[2019-02-15] MEDS ORDERED: methylPREDNISolone Sodium Succinate 40 MG/1 ML SDV IVPUSH SCH (07:00)
[2019-02-15] MEDS: guaiFENesin/Dextromethorphan 100-10 MG/5 ML Soln 5 ML Cup PO SCH (08:02)
[2019-02-15] MEDS: VARENICLINE TARTRATE PO SCH (08:02)
[2019-02-15] MEDS: Azithromycin 250 MG Tab PO SCH (08:02)
[2019-02-15] MEDS: Lisinopril 20 MG Tab PO SCH (08:02)
[2019-02-15] MEDS: glipiZIDE 2.5 MG Tab.ER PO SCH (08:02)
[2019-02-15] MEDS: Metoprolol Tartrate 50 MG Tab PO SCH (08:02)
[2019-02-15] MEDS: Insulin Lispro 100 Units/ML 3 ML Vial SUBCUT SCH ×2 (08:03→11:21)
[2019-02-15] MEDS: Glycopyrrolate 15.6 MCG Cap.W.Dev Kit of 6 IH SCH (08:26)
--- NOTE | 2019-02-15 09:10 | PCM.DCSUM1 ---
Discharge Summary - Hospital Course HPI Initial Comments: Serenity Garcia is a 48 yo female presents with shortness of breath and cough which started 3 weeks ago when she was cleaning out Her which was rat infested has gotten worse. She had influenza A in January and was on Tamiflu but did feel that she had recovered from that. She is in the ED on 02/06/19 was diagnosed with bronchitis admitting given azithromycin and promethazine with codeine cough syrup. States that she finished the antibiotic and symptoms have since worsened. She is on room air and saturations were at 84%. 3 L O2 applied and she is up to 94%. She is not usually on O2 at home. No history of any problems including CHF, COPD, asthma, SEBAS. She has seasonal allergies and uses Claritin and Benadryl as needed. She is currently complaining of a fever and nonproductive cough, occasional vomiting with cough, difficulty swallowing food due to a coughing fit, sore throat with difficulty eating and drinking, and orthopnea. She did try prior inhaler at home with no relief. She has a history of smoking 1 pack a day for 10 years however she has cut back to one pack a week for 3 weeks and hasn't smoked in the last 2 weeks. She is trying to quit is currently on Chantix. She is currently on her menses and has lasted about 1.5 weeks. She has a double Provera shot and has since had irregular menses. Reportedly had a PFT performed several years ago in [place] at [facility]. In the ED temperature 98.6 Fahrenheit. Pulse 121. Respirations 20. Blood pressure 157/105. Pulse ox 93%. Labs are obtained: WBC normal at 9.96. Hemoglobin 14.3. Hematocrit 42.7. She's normocytic. Posterior lower 104,000. Neutrophils are good at 62%. D-dimer 0.51. Sodium is 141. Potassium 3.1. Chloride 104. Carbon dioxide 26. Anion gap is 14.1. BUN is 9. Creatinine 0.8. EGFR greater than 60. Glucose is 119. Calcium 9.6. Bilirubin 0.4. AST is 22, ALT 26, alkaline phosphatase 101. CRP is high at 7.0. Protein is high at 8.3. Albumin 3.4. ProBNP is 237. Mycoplasma pneumonia was negative. ABGs obtained in the right radial showing a pH of 7.43. PCO2 of 38.2. PO2 67.0. HCO3 is 24.7. O2 saturation 94.4. Base excess is 1.A-a gradient is 90. This is obtained on 3 L via nasal cannula. She is given duo nebs and 125 mg Solu- Medrol. Chest x-ray obtained showing stable findings with nothing acute. Troponin is negative at less than 0.017. She carries a history of HTN, HLD, GERD, "prediabetes". She is a former smoker reportedly hasn't smoked in 2 weeks and is on Chantix while trying to quit. Her PCP is Kaye Rubio PA-C. She is a full code. Diagnosis: Stroke: No - Discharge Data Discharge Date: 02/15/19 (Admit date: 02/12/19) Discharge Disposition: Home, Self-Care 01 Condition: Good - Discharge Diagnosis/Problem(s) (1) Cough SNOMED Code(s): 75026177 ICD Code: R05 - COUGH Status: Acute Current Visit: Yes (2) Hypoxia SNOMED Code(s): 047078961 ICD Code: R09.02 - HYPOXEMIA Status: Acute Current Visit: Yes (3) Reactive airway disease SNOMED Code(s): 276027280519 ICD Code: J45.909 - UNSPECIFIED ASTHMA, UNCOMPLICATED Status: Acute Current Visit: Yes (4) Suspected chronic obstructive pulmonary disease based on initial evaluation SNOMED Code(s): 55004362 ICD Code: J44.9 - CHRONIC OBSTRUCTIVE PULMONARY DISEASE, UNSPECIFIED Status : Acute Priority: High Current Visit: Yes (5) Hyperthyroidism SNOMED Code(s): 45796803 ICD Code: E05.90 - THYROTOXICOSIS, UNSP WITHOUT THYROTOXIC CRISIS OR STORM Status: Acute Priority: High Current Visit: Yes (6) Acute respiratory failure with hypoxia SNOMED Code(s): 16945231, 254232220 ICD Code: J96.01 - ACUTE RESPIRATORY FAILURE WITH HYPOXIA Status: Resolved Priority: High Current Visit: Yes - Patient Summary/Data Consults: Consultations 02/12/19 22:57 Consult to Case Management/Venetian Blind Assembler [CONS] Routine Consult to Staff Development Coordinator [CONS] Routine Consult to Spiritual Care [CONS] Routine OT Evaluation and Treatment [CONS] Routine PT Evaluation and Treatment [CONS] Routine Respiratory Care Assess and Treatment [CONS] Routine Labs Pending at D/C: T3 uptake Recommended Follow-up Testing/Procedures: Follow-up with PCP within 1 week of discharge. -Obtain CMP, BMP, Magnesium at this appointment Recommend follow-up outpatient with endocrinology and pulmonology. Hospital Course: I/P: Acute RAD -Suspected underlying COPD exacerbation although not formally diagnosed with COPD per patient -Reports SOB and cough that started 3 weeks ago -Treated for Influenza A in January with Tamiflu - feels like she recovered -In ED on 02/06/19 for bronchitis and given z-latricia and promethazine with codeine cough syrup -Finished antibiotic but feels like she has gotten worse -Saturations 84% on RA in ED, 94% on 3L -Does not usually use home O2. -Hx/o seasonal allergies on claritin and benadryl PRN; 10 year PPD smoker who has been quitting -No known COPD, Asthma, CHF, SEBAS - Reportedly had PFT done many years ago in [place] with no airway diagnosis -CXR in ED shows nothing acute -Mycoplasma, influenza negative -No leukocytosis -CRP 7.0-->9.0-->5.3 -BNP 237 -Magnesium 2.0-->1.8 -Duoneb given in ED - continue scheduled as ordered -Started azithromycin 250mg daily -D-dimer 0.51 -ABG in ED: PH 7.43. PCO2 38.2. PO2 67.0. HCO3 24.7. O2 saturation 94.4. While on 3L -IS/Acapella/RT -125mg Solu-medrol given in ED - Continue to taper as ordered -Robitussin DM TID as ordered -> switched to QID -Glycopyrrolate as ordered -Terbutaline 2.5mg BID for 4 doses -Sputum culture: * Many gram negative coccobacilli * Many gram positive cocci * Few epithelial cells * Few WBCs * Few gram neg rods * Rare gram negative diplococci -Repeat CXR 02/14/19: Nothing acute, no nogueira from prior CXR -Suggest PFT after discharge once symptoms resolve Hyperthyroidism -TSH 0.055 -T4 1.81 -Total T3 91 -Obtain old records from [place] -T3 uptake pending -No thyromegaly or nodules noted on physical exam -Thyroid ultrasound ordered -PCP to follow-up -Recommend outpatient endocrinology f/u Tachycardia, improved to resolved -HR in 110's to 120's throughout most of stay; 90's today -Believed to be 2/2 medications initially, suspect may be 2/2 hyperthyroid as above -Switched albuterol to xopenex -Will work on stepping down steroid -Metoprolol 25mg BID Resolved: S/P Acute respiratory failure -Requiring 4L O2 in ED -Continued hypoxia, complaints of SOB -ABG as above -Treatment as above -2mg Morphine given with good results Chronic: HTN HLD "Pre-diabetes" - A1C here 5.7 - Switch to high ISS GERD - continue home PPI Plan: Admit to medical floor observation status with telemetry Home medications as ordered Routine AM labs PT/OT Obtain old PFT from [facility] in [place] CM/SW for discharge planning Staff Development Coordinator consult Spiritual care consult Other orders as indicated above DVT prophylaxis: SCDs Code status: Full code; PCP: Carlotta Rubio PA-C Aurelio was brought in for dyspnea and hypoxia. It is thought this is more of a reactive airway disease as she has no formal COPD diagnosis. We do believe she has an underlying COPD and she reports her last PFT was obtained many years ago in [place] at [facility]. We attempted to obtain old records, however we were unsuccessful. They reported that she does not have anything in the computer so this would be at least 10 years prior. She was given azithromycin as well as high-dose steroids. Chest x-rays continued to show nothing acute. Steroids were trimmed down throughout the course her stay and also bili discontinued. She did obtain terbutaline and 4 times a day Robitussin-DM. She was utilizing ISS and Acapella. RT did work with her heavily and we were able to wean her off of her oxygen. She did continue to have a somewhat productive cough as well as occasional wheezing. Sputum culture was obtained and was positive for moderate Haemophilus parainfluenza. Influenza was negative. Here she was noted to be quite tachycardic with heart rate in the 120s. This was originally thought to be secondary to her medications as she was receiving frequent DuoNeb's. This was switched to Xopenex without any real change in her symptoms. TSH was obtained and was 0.055. T4 1 0.81. Total T3 was 91. T3 uptake was obtained but is pending. There was no thyromegaly or nodules noted on physical exam. Thyroid ultrasound was obtained and interpreted by Dr. Mueller as "1. Ill-defined hypoechoic areas within both lobes of thyroid gland. Recommend repeat thyroid ultrasound in 6 months to confirm stability." She was therefore started on 5 mg oral methimazole 3 times a day at 0700, 1400, and 2100 hrs. Due to her tachycardia she was also started on metoprolol 50 mg every 12 hours with the parameter of holding if blood pressure is at or less than 100/60 or heart rate is at or less than 60 bpm. Her blood sugars have been elevated here likely secondary to steroid use and her A1c was found to be 5.7. She was receiving coverage with insulin however this was discontinued at discharge as her steroid was discontinued at discharge as well. She will be discharged today. PT/OT did evaluate her. She was to continue her home albuterol inhaler along with DuoNeb's as needed. She was noted to have an elevated blood pressure was started on lisinopril 20 mg at bedtime with the parameter of holding if less than 100/60. She was started on metoprolol 50 mg twice a day with parameters as mentioned prior. She was also started on this by Jennyfer 4 g inhaler twice a day. She is a former smoker who has been in the process of quitting using Chantix and should continue this as before. She should also continue her Lipitor. She was prescribed 12.5 mg twice a day HCTZ for hypertension, along with methimazole 5 mg 3 times a day as mentioned prior. She was instructed to follow-up with her primary care provider in one week. She should also follow-up with pulmonology and endocrinology at next available appointments. She should have a PFT outpatient after discharge once her symptoms resolve completely. She was instructed to return to the ED, contact a walk-in clinic, or contact her PCP should symptoms return or worsen. - Patient Instructions Diet: Heart Healthy Diet, Usual Diet as Tolerated, Low Sodium, Weight Loss Diet Activity: As Tolerated Driving: May Drive Today Showering/Bathing: May Shower Notify Provider of: Fever, Increased Pain, Nausea and/or Vomiting Other/Special Instructions: - Please take all new medications as directed. - Resume all home medications and routine activities as tolerated. - Recommend follow up CBC, BMP and Mg through your PCP's office in 1 week. - Recommend oupatient referral for Rehabilitation Coordinator and 911 Emergency Dispatcher after discharge. - Please wear mask at work specially when you handle cleaning agents or chemicals. - Recommend lifestyle modifications: eat properly, exercise regularly and lose weight. - Make sure always have your rescue inhaler within reach when needed. - Call or follow up with your PCP for any questions or concerns after discharge. - Follow up with your PCP in 1 week with repeat lab as above. - Call 911 or come back and seek immediate care at the nearest medical facility should your symptoms persist or get worse - Discharge Plan *PRESCRIPTION DRUG MONITORING PROGRAM REVIEWED*: Not Applicable *COPY OF PRESCRIPTION DRUG MONITORING REPORT IN PATIENT OMAR: Not Applicable Prescriptions/Med Rec: methIMAzole [Methimazole] 5 mg PO TID@0700,1400,2100 #120 tablet Metoprolol Tartrate [Lopressor] 50 mg PO Q12H #60 tablet Tiotropium [place] [Spiriva Respimat] 4 gm IH BID #1 mist.inhal Home Medications: Home Meds Albuterol/Ipratropium [DuoNeb 3.0-0.5 MG/3 ML] 3 ml NEB TID PRN 02/06/19 [ History] Omeprazole 20 mg PO DAILY 02/06/19 [History] atorvaSTATin [Lipitor] 10 mg PO BEDTIME 02/06/19 [History] Albuterol Sulfate [Proair Hfa] 2 inh INH Q4HR PRN 02/12/19 [History] Varenicline Tartrate [Chantix] 1 tab PO BID 02/13/19 [History] Lisinopril 20 mg PO BEDTIME #0 02/15/19 [Rx] Metoprolol Tartrate [Lopressor] 50 mg PO Q12H #60 tablet 02/15/19 [Rx] Tiotropium [place] [Spiriva Respimat] 4 gm IH BID #1 mist.inhal 02/15/19 [Rx] hydroCHLOROthiazide [Hydrochlorothiazide] 12.5 mg PO BID #60 02/15/19 [Rx] methIMAzole [Methimazole] 5 mg PO TID@0700,1400,2100 #120 tablet 02/15/19 [Rx] Oxygen Therapy Mode: Room Air Patient Handouts: Hyperthyroidism, Hypoxia, Bronchospasm, Adult, [id number], Acute Respiratory Failure, Adult, Pulmonary Function Tests, Steps to Quit Smoking, Obesity, Adult, [id number], Acute Bronchitis, Adult Referrals: Carlotta Rubio PA-C [Primary Care Provider] - 02/22/19 10:00 am (Please follow-up with your primary care doctor, Carlotta Rubio PA-C, at your previously scheduled appointment on WednesdayFebruary 22 at 1000am. ) Corina Zavala MD [Ordering Only Provider] - 03/28/19 10:30 am (911 Emergency Dispatcher at [facility] in [place]. Appointment is at 10:30 am APPRENTICE TECHNICIAN, 9:30 [facility].) - Discharge Summary/Plan Comment DC Time >30 min.: Yes (45 minutes ) - General Info Date of Service: 02/15/19 Admission Dx/Problem (Free Text: Admission Diagnosis/Problem Admission Diagnosis/Problem Hypoxia Subjective Update: In to see Aurelio. She is sitting up in the chair and reports she feels quite a bit better. She was weaned off of oxygen overnight. No patient or nursing concerns. Labs continue to improve with CRP and WBC trending down. Leukocytosis is likely 2/2 steroid usage. She will be discharged today. Functional Status: Reports: Pain Controlled, Tolerating Diet, Ambulating, Urinating, Incentive Spirometry, Other (Acapella ). Denies: New Symptoms - Review of Systems General: Reports: No Symptoms. Denies: Fever, Weakness, Fatigue, Malaise, Chills HEENT: Reports: No Symptoms. Denies: Headaches, Sore Throat Pulmonary: Reports: No Symptoms, Cough, Sputum, Wheezing (occasional ). Denies : Shortness of Breath, Pleuritic Chest Pain Cardiovascular: Reports: No Symptoms. Denies: Palpitations, Edema, Lightheadedness Gastrointestinal: Reports: No Symptoms. Denies: Abdominal Pain, Constipation, Diarrhea, Nausea, Vomiting Genitourinary: Reports: No Symptoms. Denies: Pain Musculoskeletal: Reports: No Symptoms Skin: Reports: No Symptoms. Denies: Cyanosis Neurological: Reports: No Symptoms. Denies: Confusion, Pre-Existing Deficit, Difficulty Walking, Weakness, Gait Disturbance Psychiatric: Reports: No Symptoms - Patient Data Vitals - Most Recent: Last Vital Signs Temp 98.2 F 02/15/19 07:29 Pulse 101 H 02/15/19 08:02 Resp 16 02/15/19 07:29 BP 136/93 H 02/15/19 08:02 Pulse Ox 92 L 02/15/19 08:27 Weight - Most Recent: 192 lb 6.4 oz I&O - Last 24 hours: Intake & Output 02/14/19 02/15/19 02/15/19 22:59 06:59 14:59 Intake Total 1500 650 Output Total 1800 400 Balance -300 250 Lab Results - Last 24 hrs: Laboratory Results - last 24 hr 02/14/19 02/14/19 02/14/19 Range/Units 05:42 11:04 16:10 WBC (3.98-10.04) K/mm3 RBC (3.98-5.22) M/mm3 Hgb (11.2-15.7) gm/L Hct (34.1-44.9) % MCV (79.4-94.8) fl MCH (25.6-32.2) pg MCHC (32.2-35.5) g/dl RDW Std Deviation (36.4-46.3) fL Plt Count (182-369) K/mm3 Neut % (Auto) (34.0-71.1) % Lymph % (Auto) (19.3-51.7) % [place] % (Auto) (4.7-12.5) % Eos % (Auto) (0.7-5.8) Baso % (Auto) (0.1-1.2) % Neut # (Auto) (1.56-6.13) K/mm3 Lymph # (Auto) (1.18-3.74) K/mm3 [place] # (Auto) (0.24-0.36) K/mm3 Eos # (Auto) (0.04-0.36) K/mm3 Baso # (Auto) (0.01-0.08) K/mm3 Manual Slide Review Sodium (136-145) mEq/L Potassium (3.5-5.1) mEq/L Chloride (98-107) mEq/L Carbon Dioxide (21-32) mEq/L Anion Gap (5-15) BUN (7-18) mg/dL Creatinine (0.55-1.02) mg/dL Est Cr Clr Drug Dosing mL/min Estimated GFR (MDRD) (>60) mL/min BUN/Creatinine Ratio (14-18) Glucose (74-106) mg/dL POC Glucose 353 H 146 H (70-105) mg/dL Calcium (8.5-10.1) mg/dL C-Reactive Protein (<1.0) mg/dL Total T3 91 (87-178) ng/dL 02/14/19 02/15/19 02/15/19 Range/Units 21:15 05:50 05:50 WBC 13.05 H (3.98-10.04) K/mm3 RBC 4.37 (3.98-5.22) M/mm3 Hgb 13.1 (11.2-15.7) gm/L Hct 39.4 (34.1-44.9) % MCV 90.2 (79.4-94.8) fl MCH 30.0 (25.6-32.2) pg MCHC 33.2 (32.2-35.5) g/dl RDW Std Deviation 42.9 (36.4-46.3) fL Plt Count 107 L (182-369) K/mm3 Neut % (Auto) 87.1 H (34.0-71.1) % Lymph % (Auto) 9.7 L (19.3-51.7) % [place] % (Auto) 3.0 L (4.7-12.5) % Eos % (Auto) 0 L (0.7-5.8) Baso % (Auto) 0.0 L (0.1-1.2) % Neut # (Auto) 11.36 H (1.56-6.13) K/mm3 Lymph # (Auto) 1.27 (1.18-3.74) K/mm3 [place] # (Auto) 0.39 H (0.24-0.36) K/mm3 Eos # (Auto) 0.00 L (0.04-0.36) K/mm3 Baso # (Auto) 0.00 L (0.01-0.08) K/mm3 Manual Slide Review Abnormal smear Sodium 136 (136-145) mEq/L Potassium 3.9 (3.5-5.1) mEq/L Chloride 101 (98-107) mEq/L Carbon Dioxide 25 (21-32) mEq/L Anion Gap 13.9 (5-15) BUN 24 H (7-18) mg/dL Creatinine 0.9 (0.55-1.02) mg/dL Est Cr Clr Drug Dosing 60.59 mL/min Estimated GFR (MDRD) > 60 (>60) mL/min BUN/Creatinine Ratio 26.7 H (14-18) Glucose 189 H (74-106) mg/dL POC Glucose 353 H (70-105) mg/dL Calcium 9.1 (8.5-10.1) mg/dL C-Reactive Protein 2.4 H* (<1.0) mg/dL Total T3 (87-178) ng/dL 02/15/19 Range/Units 06:11 WBC (3.98-10.04) K/mm3 RBC (3.98-5.22) M/mm3 Hgb (11.2-15.7) gm/L Hct (34.1-44.9) % MCV (79.4-94.8) fl MCH (25.6-32.2) pg MCHC (32.2-35.5) g/dl RDW Std Deviation (36.4-46.3) fL Plt Count (182-369) K/mm3 Neut % (Auto) (34.0-71.1) % Lymph % (Auto) (19.3-51.7) % [place] % (Auto) (4.7-12.5) % Eos % (Auto) (0.7-5.8) Baso % (Auto) (0.1-1.2) % Neut # (Auto) (1.56-6.13) K/mm3 Lymph # (Auto) (1.18-3.74) K/mm3 [place] # (Auto) (0.24-0.36) K/mm3 Eos # (Auto) (0.04-0.36) K/mm3 Baso # (Auto) (0.01-0.08) K/mm3 Manual Slide Review Sodium (136-145) mEq/L Potassium (3.5-5.1) mEq/L Chloride (98-107) mEq/L Carbon Dioxide (21-32) mEq/L Anion Gap (5-15) BUN (7-18) mg/dL Creatinine (0.55-1.02) mg/dL Est Cr Clr Drug Dosing mL/min Estimated GFR (MDRD) (>60) mL/min BUN/Creatinine Ratio (14-18) Glucose (74-106) mg/dL POC Glucose 199 H (70-105) mg/dL Calcium (8.5-10.1) mg/dL C-Reactive Protein (<1.0) mg/dL Total T3 (87-178) ng/dL MEETA Results - Last 24 hrs: Microbiology 02/13/19 00:00 Gram Stain - Final Sputum - Expectorated Sputum Culture - Preliminary Haemophilus Parainfluenzae Med Orders - Current: Current Medications Acetaminophen (Tylenol) 650 mg PO Q4H PRN PRN Reason: Pain (Mild 1-3)/fever Hydrocodone Bitart/Acetaminophen ([place] 325-5 Mg) 1 tab PO Q4H PRN PRN Reason: Pain (moderate 4-6) Acetylcysteine (Mucomyst 20%) 800 mg NEB BIDRT [facility] Last Admin: 02/15/19 06:41 Dose: 800 mg Bisacodyl (Dulcolax) 5 mg PO DAILY PRN PRN Reason: Constipation Dextrose/Water (Dextrose 50% In Water) 50 ml IV ASDIRECTED PRN PRN Reason: Hypoglycemia Diltiazem HCl (Cardizem) 10 mg IVPUSH Q4H PRN PRN Reason: Tachycardia Last Admin: 02/14/19 15:32 Dose: 10 mg Docusate Sodium (Colace) 100 mg PO BID PRN PRN Reason: Constipation Last Admin: 02/13/19 00:01 Dose: 100 mg Glipizide (Glucotrol Xl) 2.5 mg PO BID [facility] Last Admin: 02/15/19 08:02 Dose: 2.5 mg Glycopyrrolate (Seebri Neohaler) 0 mcg IH BID [facility] Last Admin: 02/15/19 08:26 Dose: 1 puff Guaifenesin/Phenylephrine HCl (Robitussin Dm) 10 ml PO QID [facility] Last Admin: 02/15/19 08:02 Dose: 10 ml Hydralazine HCl (Apresoline) 20 mg IVPUSH Q4H PRN PRN Reason: Hypertension Hydrochlorothiazide (Hydrochlorothiazide) 12.5 mg PO BIDDIURETIC [facility] Last Admin: 02/15/19 06:06 Dose: 12.5 mg Insulin Human Lispro (Humalog) 0 unit SUBCUT QIDACANDBED [facility]; Protocol Last Admin: 02/15/19 08:03 Dose: 3 unit Levalbuterol HCl (Xopenex) 1.25 mg NEB BIDRT [facility] Last Admin: 02/15/19 06:41 Dose: 1.25 mg Levalbuterol HCl (Xopenex) 1.25 mg NEB Q4HRRT PRN PRN Reason: SOB/WHEEZING Last Admin: 02/13/19 14:13 Dose: 1.25 mg Lisinopril (Prinivil) 20 mg PO DAILY [facility] Last Admin: 02/15/19 08:02 Dose: 20 mg Lorazepam (Ativan) 1 mg IV Q6H PRN PRN Reason: Anxiety Last Admin: 02/14/19 17:28 Dose: 1 mg Magnesium Sulfate (Pharmacy To Dose - Magnesium Replacement) 0 dose .XX ASDIRECTED PRN PRN Reason: PHARMACY TO MONITOR Methimazole (Methimazole) 15 mg PO TID@0700,1400,2100 [facility] Last Admin: 02/15/19 06:06 Dose: 15 mg Methylprednisolone Sodium Succinate (Solu-Medrol) 40 mg IVPUSH Q12H [facility] Last Admin: 02/15/19 06:04 Dose: 40 mg Metoprolol Tartrate (Lopressor) 50 mg PO Q12H [facility] Last Admin: 02/15/19 08:02 Dose: 50 mg Miscellaneous Information (Remove Patch) 1 ea TRDERM Q7D ONE Stop: 02/20/19 16:01 Morphine Sulfate (Morphine) 2 mg IVPUSH Q4H PRN PRN Reason: Dyspnea Stop: 02/16/19 22:56 Ondansetron HCl (Zofran) 4 mg IV Q6H PRN PRN Reason: Nausea/Vomiting Pantoprazole Sodium (Protonix) 40 mg PO DAILY@0700 [facility] Last Admin: 02/15/19 06:07 Dose: 40 mg Varenicline Tartrate ([Chantix] Ptom) 0 each PO BID [facility] Last Admin: 02/15/19 08:02 Dose: 1 each Polyethylene Glycol (Miralax) 17 gm PO DAILY PRN PRN Reason: Constipation Potassium Chloride (Pharmacy To Dose - Potassium Replacement) 0 dose .XX ASDIRECTED PRN PRN Reason: PHARMACY TO MONITOR Senna/Docusate Sodium (Senna Plus) 1 tab PO BID PRN PRN Reason: Constipation Simvastatin (Zocor) 10 mg PO BEDTIME AYSE Last Admin: 02/14/19 21:28 Dose: 10 mg Temazepam (Restoril) 15 mg PO BEDTIME PRN PRN Reason: Sleep Last Admin: 02/14/19 23:11 Dose: 15 mg Discontinued Medications Albuterol (Proventil Neb Soln) 2.5 mg NEB ONETIME ONE Stop: 02/12/19 20:15 Last Admin: 02/12/19 20:37 Dose: 2.5 mg Albuterol (Proventil Neb Soln) 2.5 mg NEB ONETIME ONE Stop: 02/12/19 20:45 Last Admin: 02/12/19 21:06 Dose: Not Given Albuterol/Ipratropium (Duoneb 3.0-0.5 Mg/3 Ml) 3 ml NEB Q4H PRN PRN Reason: Shortness Of Breath/wheezing Last Admin: 02/13/19 09:21 Dose: 3 ml Albuterol/Ipratropium (Duoneb 3.0-0.5 Mg/3 Ml) 3 ml NEB BIDRT [facility] Last Admin: 02/13/19 06:13 Dose: 3 ml Azithromycin (Zithromax) 250 mg PO DAILY AYSE Stop: 02/15/19 09:01 Last Admin: 02/15/19 08:02 Dose: 250 mg Clonidine HCl (Catapres-Tts 3) 0.3 mg TRDERM Q7D ONE Stop: 02/13/19 15:59 Last Admin: 02/13/19 17:57 Dose: 0.3 mg Dextrose/Water (Dextrose 50% In Water) 50 ml IVPUSH ASDIRECTED PRN PRN Reason: Hypoglycemia Guaifenesin/Phenylephrine HCl (Robitussin Dm) 10 ml PO TID@0700,1400,2100 [facility] Last Admin: 02/13/19 11:59 Dose: 10 ml Guaifenesin/Phenylephrine HCl (Robitussin Dm) 10 ml PO NOW STA Stop: 02/12/19 23:08 Last Admin: 02/12/19 23:57 Dose: 10 ml Hydrochlorothiazide (Hydrochlorothiazide) 12.5 mg PO DAILY [facility] Last Admin: 02/13/19 08:04 Dose: 12.5 mg Magnesium Sulfate/Dextrose 1 (gm/ Premix) 100 mls @ 100 mls/hr IV ONETIME ONE Stop: 02/13/19 00:03 Last Admin: 02/13/19 01:23 Dose: 100 mls/hr Azithromycin 250 mg/ Sodium (Chloride) 250 mls @ 250 mls/hr IV Q24H ONE Stop: 02/13/19 00:04 Last Admin: 02/13/19 00:02 Dose: 250 mls/hr Influenza Virus Vaccine (Pharmacy To Dose - Influenza Vaccine) 1 each IM ONETIME ONE Stop: 02/12/19 21:40 Influenza Virus Vaccine (Fluzone Quad [id number] Syringe) 60 mcg IM .ONCE ONE Stop: 02/12/19 21:46 Methimazole (Methimazole) 15 mg PO ONETIME ONE Stop: 02/14/19 15:39 Last Admin: 02/14/19 16:09 Dose: 15 mg Methylprednisolone Sodium Succinate (Solu-Medrol) 125 mg IVPUSH ONETIME ONE Stop: 02/12/19 18:07 Last Admin: 02/12/19 18:51 Dose: 125 mg Methylprednisolone Sodium Succinate (Solu-Medrol) 80 mg IVPUSH Q6H [facility] Stop: 02/14/19 01:00 Last Admin: 02/14/19 01:13 Dose: 80 mg Methylprednisolone Sodium Succinate (Solu-Medrol) 60 mg IVPUSH Q8H [facility] Stop: 02/15/19 00:00 Last Admin: 02/14/19 23:11 Dose: 60 mg Metoprolol Tartrate (Lopressor) 5 mg IVPUSH Q4H PRN PRN Reason: Tachycardia Last Admin: 02/13/19 15:47 Dose: 5 mg Metoprolol Tartrate (Lopressor) 25 mg PO BID [facility] Last Admin: 02/14/19 08:37 Dose: 25 mg Morphine Sulfate (Morphine) 2 mg IVPUSH ONETIME ONE Stop: 02/12/19 22:23 Last Admin: 02/12/19 22:42 Dose: 2 mg Potassium Chloride (Klor-Con M20) 40 meq PO STAT ONE Stop: 02/12/19 23:16 Last Admin: 02/13/19 00:01 Dose: 40 meq Potassium Chloride (Klor-Con M20) 40 meq PO Q4H AYSE Stop: 02/13/19 08:01 Last Admin: 02/13/19 08:03 Dose: 40 meq Terbutaline Sulfate (Brethine) 2.5 mg PO BID AYSE Stop: 02/14/19 21:01 Last Admin: 02/14/19 21:27 Dose: 2.5 mg Terbutaline Sulfate (Brethine) 2.5 mg PO NOW STA Stop: 02/12/19 23:04 Last Admin: 02/13/19 00:01 Dose: 2.5 mg - Exam Quality Assessment: Reports: DVT Prophylaxis. Denies: Supplemental Oxygen General: Reports: Alert, Oriented, Cooperative, No Acute Distress HEENT: Reports: Pupils Equal, Pupils Reactive, EOMI, Mucous Membr. Moist/[place] Neck: Reports: Supple, Trachea Midline, No JVD, No Thyromegaly Lungs: Reports: Normal Respiratory Effort, Decreased Breath Sounds. Denies: Rales, Rhonchi, Wheezing Cardiovascular: Reports: Regular Rhythm, Tachycardia (HR in low 100s ) GI/Abdominal Exam: Normal Bowel Sounds, Soft, Non-Tender, No Organomegaly, No Distention (Female) Exam: Deferred Rectal (Female) Exam: Deferred Back Exam: Reports: Normal Inspection, Full Range of Motion Extremities: Normal Inspection, Normal Range of Motion, Non-Tender, No Pedal Edema, Normal Capillary Refill Skin: Reports: Warm, Dry, Intact Neurological: Reports: No New Focal Deficit Psy/Mental Status: Reports: Alert, Normal Affect, Normal Mood
[2019-02-20] MEDS ORDERED: [UNRECOGNIZED DRUG - REMARK] TRDERM ONE (16:00)
== END 2019-02-15 13:05 | disposition home or self-care (01) | DRG 190 ==
LOC: JD.ED 16:23 → JD.MS 21:19 → OBSVTOIN 02-13 13:02
PROVIDERS: ADMIT Internal Medicine; ATTEND Internal Medicine
DX: J44.1 Chronic obstructive pulmonary disease with (acute) exacerbation (principal); J96.01 Acute respiratory failure with hypoxia; I10 Essential (primary) hypertension; E78.5 Hyperlipidemia, unspecified; K21.9 Gastro-esophageal reflux disease without esophagitis; R73.03 Prediabetes; F17.210 Nicotine dependence, cigarettes, uncomplicated; E05.90 Thyrotoxicosis, unspecified without thyrotoxic crisis or storm; H54.7 Unspecified visual loss; E78.00 Pure hypercholesterolemia, unspecified; A60.00 Herpesviral infection of urogenital system, unspecified; D72.829 Elevated white blood cell count, unspecified; T17.928A Food in respiratory tract, part unspecified causing other injury, initial encounter; T38.0X5A Adverse effect of glucocorticoids and synthetic analogues, initial encounter; Z79.899 Other long term (current) drug therapy; Z88.8 Allergy status to other drugs, medicaments and biological substances; Z90.49 Acquired absence of other specified parts of digestive tract; Z98.891 History of uterine scar from previous surgery; Z23 Encounter for immunization
CPT/HCPCS: 36415; 36600; 71045; 71045-26; 76536-26; 76536-50; 80048; 80053; 82803; 82962; 83036; 83735; 83880; 84439; 84443; 84479; 84480; 84484; 85025; 85379; 86140; 86738; 87070; 87077; 87205; 87804; 90686; 94640; 94667; 94668; 94760; 94761; 96365; 96367; 96374; 96375; 96376; 97116-GP; 97162-GP; 97165-GO; 99285; 99285-25; A9270-GY; G0008; G0378; J0456; J1815-GY; J2060; J2270; J2920; J2930; J3475; J3490; J7050; J7612-GY; J7620-GY